=== PATIENT | female | born 1935 | race Caucasian/White ===

== ENCOUNTER 2023-11-14 11:48 | Inpatient (IN) | payer MEDICARE, OTHER ==
--- NOTE | 2023-11-14 12:44 | ED ---
General Adult HPI - General Chief complaint: Altered Mental Status Stated complaint: AMS Time Seen by Provider: 11/14/23 11:59 Source: patient, EMS, RN notes reviewed Mode of arrival: EMS Limitations: altered mental status - History of Present Illness Initial comments: Patient is a pleasant 88-year-old female present to the emergency department after being found on the floor. Last known well was 4 days ago. Patient states she was trying to change a light and fell. Patient does complain of left hip pain. Unclear when this happened. Patient was lying on the floor. Patient found covered with feces. - Related Data Home Medications Medication Instructions Recorded Confirmed ALPRAZolam [Xanax] 0.5 mg PO BID PRN 11/14/23 11/14/23 Levothyroxine Sodium [Synthroid] 50 mcg PO DIRECTED 11/14/23 11/14/23 Levothyroxine Sodium [Synthroid] 100 mcg PO DIRECTED 11/14/23 11/14/23 Allergies Allergy/AdvReac Type Severity Reaction Status Date / Time No Known Allergies Allergy Verified 11/14/23 12:36 Review of Systems ROS Statement: Those systems with pertinent positive or pertinent negative responses have been documented in the HPI. ROS Other: All systems not noted in ROS Statement are negative. Constitutional: Denies: fever Eyes: Denies: eye pain ENT: Denies: ear pain Respiratory: Denies: cough, dyspnea Cardiovascular: Denies: chest pain Endocrine: Denies: fatigue Gastrointestinal: Denies: abdominal pain Musculoskeletal: Reports: as per HPI Past Medical History Past Medical History: Unable to Obtain History of Any Multi-Drug Resistant Organisms: Unobtainable Past Surgical History: Unable to Obtain Smoking Status: Unknown if ever smoked Past Alcohol Use History: Unable to Obtain Past Drug Use History: Unable to Obtain General Exam Limitations: altered mental status General appearance: alert, in no apparent distress Head exam: Present: other (Abrasion) Eye exam: Present: normal appearance, PERRL, EOMI ENT exam: Present: mucous membranes dry Neck exam: Present: normal inspection. Absent: tenderness Respiratory exam: Present: normal lung sounds bilaterally Cardiovascular Exam: Present: irregular rhythm GI/Abdominal exam: Present: soft. Absent: tenderness Extremities exam: Present: tenderness (Left lateral hip. Left leg is shortened and externally rotated) Neurological exam: Present: alert, CN II-XII intact. Absent: motor sensory deficit Expanded Neurological exam: Present: protecting the airway Patient oriented to: Present: person, time. Absent: place Cranial nerves: EOM's Intact: Normal Motor strength exam: RUE: 5, LUE: 5, RLE: 5, LLE: 5 (Limited by hip pain) Eye Response: (4) open spontaneously Motor Response: (6) obeys commands Verbal Response: (4) confused conversation Psychiatric exam: Present: normal affect, normal mood Skin exam: Present: abrasion (Multiple diffuse abrasion) Course Vital Signs 11/14/23 11/14/23 12:16 13:48 Temperature 97 F L Pulse Rate 95 78 Respiratory 20 18 Rate Blood Pressure 134/81 114/57 O2 Sat by Pulse 100 96 Oximetry EKG Findings - EKG Results: EKG: interpreted by JOVANY (Inferior T wave inversion), normal axis, normal QRS EKG shows: atrial fibrillation Medical Decision Making - Medical Decision Making Was pt. sent in by a medical professional or institution (, PA, RIGGING LOFT REPAIRER, urgent care, hospital, or jail...) When possible be specific @ -No Did you speak to anyone other than the patient for history (EMS, parent, family, police, friend...)? What history was obtained from this source @ -EMS helps provide history as patient is a poor historian Did you review nursing and triage notes (agree or disagree)? Why? @ -I reviewed and agree with nursing and triage notes Were old charts reviewed (outside hosp., previous admission, EMS record, old EKG, old radiological studies, urgent care reports/EKG's, jail records)? Report findings @ -No old charts were reviewed Differential Diagnosis (chest pain, altered mental status, abdominal pain women, abdominal pain men, vaginal bleeding, weakness, fever, dyspnea, syncope, headache, dizziness, GI bleed, back pain, seizure, CVA, palpatations, mental health, musculoskeletal)? @ -Differential Weakness: Hypoglycemia, shock, sepsis, hyponatremia, anemia, infection, OH, ETOH, adverse medicine reaction, overdose, stroke, this is not meant to be an all-inclusive list. EKG interpreted by me (3pts min.). @ -As above X-rays interpreted by me (1pt min.). @ -Chest x-ray shows no acute process. Left hip and pelvis x-ray shows left femoral neck fracture CT interpreted by me (1pt min.). @ -CT brain without acute process and C-spine U/S interpreted by me (1pt. min.). @ -None done What testing was considered but not performed or refused? (CT, X-rays, U/S, labs)? Why? @ -None What meds were considered but not given or refused? Why? @ -None Did you discuss the management of the patient with other professionals (professionals i.e. DrTaawnda, PA, RIGGING LOFT REPAIRER, lab, RT, psych nurse, social science instructor, wood room hand, teacher, zoology technical officer, medical case manager)? Give summary @ -Case was discussed with Dr. Nino, who will admit covering hospital call. Case also discussed with Dr. Rodriguez who will consult for orthopedic surgery. He is okay with medical admission secondary to fall occurring a couple of days ago. Was smoking cessation discussed for >3mins.? @ -No Was critical care preformed (if so, how long)? @ -No Were there social determinants of health that impacted care today? How? (Homelessness, low income, unemployed, alcoholism, drug addiction, transportation, low edu. Level, literacy, decrease access to med. care, intermediate, rehab)? @ -No Was there de-escalation of care discussed even if they declined (Discuss DNR or withdrawal of care, Hospice)? DNR status @ -No What co-morbidities impacted this encounter? (DM, HTN, Smoking, COPD, CAD, Cancer, CVA, ARF, Chemo, Hep., AIDS, mental health diagnosis, sleep apnea, morbid obesity)? @ -None Was patient admitted / discharged? Hospital course, mention meds given and route, prescriptions, significant lab abnormalities, going to OR and other pertinent info. @ -Patient reevaluated. Patient and family updated on results and plan. Patient has severe dehydration and hip fracture. Admission orders written. Undiagnosed new problem with uncertain prognosis? @ -No Drug Therapy requiring intensive monitoring for toxicity (Heparin, Nitro, Insulin, Cardizem)? @ -No Were any procedures done? @ -No Diagnosis/symptom? @ -Dehydration, left hip fracture Acute, or Chronic, or Acute on Chronic? @ -Acute, acute, acute Uncomplicated (without systemic symptoms) or Complicated (systemic symptoms)? @ -Default Side effects of treatment? @ -No Exacerbation, Progression, or Severe Exacerbation? @ -No Poses a threat to life or bodily function? How? (Chest pain, [place], OH, pneumonia, PE, COPD, DKA, ARF, appy, cholecystitis, CVA, Diverticulitis, Homicidal, Suicidal, threat to staff... and all critical care pts) @ -No - Lab Data Result diagrams: 11/14/23 12:44 11/14/23 12:44 Lab Results 11/14/23 11/14/23 11/14/23 Range/Units 12:44 12:44 12:44 WBC 9.7 (3.8-10.6) k/uL RBC 4.29 (3.80-5.40) m/uL Hgb 13.7 (11.4-16.0) gm/dL Hct 43.8 (34.0-46.0) % MCV 102.1 H (80.0-100.0) fL MCH 31.8 (25.0-35.0) pg MCHC 31.2 (31.0-37.0) g/dL RDW 13.3 (11.5-15.5) % Plt Count 286 (150-450) k/uL MPV 8.8 Neutrophils % 88 % Lymphocytes % 6 % Monocytes % 4 % Eosinophils % 0 % Basophils % 0 % Neutrophils # 8.5 H (1.3-7.7) k/uL Lymphocytes # 0.6 L (1.0-4.8) k/uL Monocytes # 0.4 (0-1.0) k/uL Eosinophils # 0.0 (0-0.7) k/uL Basophils # 0.0 (0-0.2) k/uL Hypochromasia Moderate Macrocytosis Slight PT 10.8 (10.0-12.5) sec INR 1.0 (<1.2) APTT 24.9 (22.0-30.0) sec Sodium (137-145) mmol/L Potassium (3.5-5.1) mmol/L Chloride (98-107) mmol/L Carbon Dioxide (22-30) mmol/L Anion Gap mmol/L BUN (7-17) mg/dL Creatinine (0.52-1.04) mg/dL Est GFR (CKD-EPI)AfAm (>60 ml/min/1.73 sqM) Est GFR (CKD-EPI)NonAf (>60 ml/min/1.73 sqM) Glucose (74-99) mg/dL Plasma Lactic Acid Gopal (0.7-2.0) mmol/L Calcium (8.4-10.2) mg/dL Magnesium (1.6-2.3) mg/dL Total Bilirubin (0.2-1.3) mg/dL AST (14-36) U/L ALT (4-34) U/L Alkaline Phosphatase (38-126) U/L Creatine Kinase (30-135) U/L Troponin I (0.000-0.034) ng/mL Total Protein (6.3-8.2) g/dL Albumin (3.5-5.0) g/dL Urine Color Yellow Urine Appearance Clear (Clear) Urine pH 5.0 (5.0-8.0) Ur Specific [place] 1.021 (1.001-1.035) Urine Protein Trace H (Negative) Urine Glucose (UA) Negative (Negative) Urine Ketones Trace H (Negative) Urine Blood Negative (Negative) Urine Nitrite Negative (Negative) Urine Bilirubin Negative (Negative) Urine Urobilinogen <2.0 (<2.0) mg/dL Ur Leukocyte Esterase Negative (Negative) 11/14/23 11/14/23 11/14/23 Range/Units 12:44 12:44 12:44 WBC (3.8-10.6) k/uL RBC (3.80-5.40) m/uL Hgb (11.4-16.0) gm/dL Hct (34.0-46.0) % MCV (80.0-100.0) fL MCH (25.0-35.0) pg MCHC (31.0-37.0) g/dL RDW (11.5-15.5) % Plt Count (150-450) k/uL MPV Neutrophils % % Lymphocytes % % Monocytes % % Eosinophils % % Basophils % % Neutrophils # (1.3-7.7) k/uL Lymphocytes # (1.0-4.8) k/uL Monocytes # (0-1.0) k/uL Eosinophils # (0-0.7) k/uL Basophils # (0-0.2) k/uL Hypochromasia Macrocytosis PT (10.0-12.5) sec INR (<1.2) APTT (22.0-30.0) sec Sodium 149 H (137-145) mmol/L Potassium 4.4 (3.5-5.1) mmol/L Chloride 115 H (98-107) mmol/L Carbon Dioxide 16 L (22-30) mmol/L Anion Gap 18 mmol/L BUN 104 H* (7-17) mg/dL Creatinine 2.00 H (0.52-1.04) mg/dL Est GFR (CKD-EPI)AfAm 26 (>60 ml/min/1.73 sqM) Est GFR (CKD-EPI)NonAf 22 (>60 ml/min/1.73 sqM) Glucose 92 (74-99) mg/dL Plasma Lactic Acid Gopal 1.9 (0.7-2.0) mmol/L Calcium 9.6 (8.4-10.2) mg/dL Magnesium 3.0 H (1.6-2.3) mg/dL Total Bilirubin 2.5 H (0.2-1.3) mg/dL AST 61 H (14-36) U/L ALT 50 H (4-34) U/L Alkaline Phosphatase 83 (38-126) U/L Creatine Kinase 395 H (30-135) U/L Troponin I 0.023 (0.000-0.034) ng/mL Total Protein 6.5 (6.3-8.2) g/dL Albumin 3.6 (3.5-5.0) g/dL Urine Color Urine Appearance (Clear) Urine pH (5.0-8.0) Ur Specific [place] (1.001-1.035) Urine Protein (Negative) Urine Glucose (UA) (Negative) Urine Ketones (Negative) Urine Blood (Negative) Urine Nitrite (Negative) Urine Bilirubin (Negative) Urine Urobilinogen (<2.0) mg/dL Ur Leukocyte Esterase (Negative) Disposition Clinical Impression: Dehydration, Fracture of left hip Disposition: ADMITTED IP TO THIS [facility] Condition: Serious Is patient prescribed a controlled substance at d/c from ED?: No Referrals: None,Stated [Primary Care Provider] - 1-2 days Time of Disposition: 14:57
[2023-11-14 13:21] LABS: Basophils % (A) 0 %; Eosinophils % (A) 0 %; HCT 43.8 % (34.0-46.0); HGB 13.7 gm/dL (11.4-16.0); Hypochromasia Moderate; Lymphocytes # (A) 0.6 k/uL (1.0-4.8); Lymphocytes % (A) 6 %; MCH 31.8 pg (25.0-35.0); MCHC 31.2 g/dL (31.0-37.0); MCV 102.1 fL (80.0-100.0); Macrocytosis Slight; Mean Platelet Volume 8.8; Monocytes # (A) 0.4 k/uL (0-1.0); Monocytes % (A) 4 %; Neutrophils # (A) 8.5 k/uL (1.3-7.7); Neutrophils % (A) 88 %; Platelet Count 286 k/uL (150-450); RBC 4.29 m/uL (3.80-5.40); RDW 13.3 % (11.5-15.5); WBC 9.7 k/uL (3.8-10.6)
[2023-11-14 13:27] LABS: Appearance,Urine Clear (Clear); Bilirubin,Urine Negative (Negative); Blood,Urine Negative (Negative); Color,Urine Yellow; Glucose,Urine (UA) Negative (Negative); Ketones,Urine Trace (Negative); Leukocyte Esterase,Urine Negative (Negative); Nitrite,Urine Negative (Negative); Protein,Urine Trace (Negative); Specific Gravity,Urine 1.021 (1.001-1.035); Urobilinogen,Urine <2.0 mg/dL (<2.0)
--- NOTE | 2023-11-14 13:30 | CT ---
EXAMINATION TYPE: CT brain cspine wo con CT DLP: 1209.2 mGycm, Automated exposure control for dose reduction was used. DATE OF EXAM: 11/14/2023 1:02 PM COMPARISON: None CLINICAL INDICATION:Female, 88 years old with history of weak; ams TECHNIQUE: Brain: Multiple axial CT images of the brain were obtained without IV contrast. Cspine: Axial CT images from the skull base to the inferior aspect of T2 we obtained without intraven ous contrast. Coronal and sagittal reformatted images were also reviewed. FINDINGS: Brain: Extra-axial spaces: No abnormal extra-axial fluid collections. Ventricular system: Dilatation in proportion to cerebral atrophy. Cerebral parenchyma: Mineralization to the basal ganglia bilaterally. Cerebral atrophy. No acute intr aparenchymal hemorrhage or mass effect. The galvez-white junction is well differentiated. Scattered hy poattenuating areas are seen within the white matter. Cerebellum: Unremarkable. Mass effect: No evidence of midline shift. Intracranial vasculature: unremarkable Soft tissues: Normal. Calvarium/osseous structures: No depressed skull fracture. Paranasal sinuses and mastoid air cells: Clear. Visualized orbits: Orbital contents are intact. Cervical spine: Fracture: None. Osseous structures: Multilevel degenerative disc disease changes with endplate spurring and disc oste ophyte complex's. Vertebral alignment: Within normal limits. Spinal canal/Neural Foramina: No evidence of significant spinal canal narrowing. No evidence for sign ificant neural foraminal stenosis. Neck soft tissues: Prevertebral soft tissues are within normal limits. Other: The airway is patent. The lung apices are clear. Atherosclerosis of the arterial vasculature. IMPRESSION: 1. No acute intracranial process. 2. Nonspecific white matter changes, likely secondary to chronic small vessel ischemic disease. 3. No evidence of cervical spine fracture. 4. Mild multilevel degenerative disc disease.
[2023-11-14 13:33] LABS: Partial Thromboplastin Time 24.9 sec (22.0-30.0); Prothrombin Time 10.8 sec (10.0-12.5)
--- NOTE | 2023-11-14 13:33 | XR ---
EXAMINATION TYPE: XR Hip LT and AP Pelvis DATE OF EXAM: 11/14/2023 1:26 PM CLINICAL INDICATION:Female, 88 years old with history of fall; PHH COMPARISON: None. TECHNIQUE: XR Hip LT and AP Pelvis; hip was examined in the frontal and lateral projections and a AP pelvis. FINDINGS/IMPRESSION: There is acute fracture of the left hip with shortening and varus deformity. The remainder of the spine and other osseous structures appear intact.
--- NOTE | 2023-11-14 13:34 | XR ---
EXAMINATION TYPE: XR chest 1V portable DATE OF EXAM: 11/14/2023 1:26 PM CLINICAL INDICATION:Female, 88 years old with history of weak; COMPARISON: None TECHNIQUE: XR chest 1V portable Frontal view of the chest. FINDINGS: Lungs/Pleura: There is no evidence of pleural effusion, focal consolidation, or pneumothorax. Pulmonary vascularity: Unremarkable. Heart/mediastinum: Cardiomediastinal silhouette is unremarkable. Musculoskeletal: No acute osseous pathology. IMPRESSION: No acute cardiopulmonary disease/process.
[2023-11-14] MEDS: SODIUM CHLORIDE 0.9% 1,000 ML IV STA (13:40)
[2023-11-14 13:58] LABS: Potassium 4.4 mmol/L (3.5-5.1)
[2023-11-14 13:59] LABS: ALT 50 U/L (4-34); AST 61 U/L (14-36); African American GFR (CKD) 26 (>60 ml/min/1.73 sqM); Albumin 3.6 g/dL (3.5-5.0); Alkaline Phosphatase 83 U/L (38-126); Anion Gap 18 mmol/L; Calcium 9.6 mg/dL (8.4-10.2); Carbon Dioxide 16 mmol/L (22-30); Chloride 115 mmol/L (98-107); Creatine Kinase 395 U/L (30-135); Glucose 92 mg/dL (74-99); Non-African American GFR(CKD) 22 (>60 ml/min/1.73 sqM); Sodium 149 mmol/L (137-145); Total Bilirubin 2.5 mg/dL (0.2-1.3); Total Protein 6.5 g/dL (6.3-8.2)
[2023-11-14 14:04] LABS: Blood Urea Nitrogen 104 mg/dL (7-17)
[2023-11-14] MEDS ORDERED: NALOXONE 0.4 MG/ML 1 ML VIAL IV PRN (14:58)
[2023-11-14] MEDS: SODIUM CHLORIDE 0.9% 1,000 ML IV SCH (15:09)
[2023-11-14] MEDS ORDERED: LEVOTHYROXINE 100 MCG TAB PO SCH (15:15)
[2023-11-14] MEDS: LEVOTHYROXINE 50 MCG TAB PO SCH (17:40)
[2023-11-14 17:43] LABS: Basophils % (A) 0 %; Eosinophils % (A) 0 %; HCT 43.6 % (34.0-46.0); HGB 13.3 gm/dL (11.4-16.0); Hypochromasia Marked; Lymphocytes # (A) 0.7 k/uL (1.0-4.8); Lymphocytes % (A) 6 %; MCH 31.6 pg (25.0-35.0); MCHC 30.5 g/dL (31.0-37.0); MCV 103.6 fL (80.0-100.0); Macrocytosis Slight; Mean Platelet Volume 8.5; Monocytes # (A) 0.5 k/uL (0-1.0); Monocytes % (A) 5 %; Neutrophils % (A) 86 %; Platelet Count 256 k/uL (150-450); RBC 4.21 m/uL (3.80-5.40); RDW 13.2 % (11.5-15.5); WBC 10.4 k/uL (3.8-10.6)
[2023-11-14] MEDS: MORPHINE SULFATE 4 MG/ML SYRINGE IV PRN (22:16)
--- NOTE | 2023-11-14 23:49 | P.HPIM ---
History of Present Illness H&P Date: 11/14/23 Chief Complaint: Altered mental status 88-year-old female present to the emergency department after being found on the floor. Last known well was 4 days ago. Patient states she was trying to change a light and fell. Patient does complain of left hip pain. Unclear when this happened. Patient was lying on the floor. Patient found covered with feces. Blood work completed in ED reveals a WBC of 9.7, hemoglobin of 13.7 and platelet count of 286, sodium 149, potassium 4.4, BUN/creatinine 104/2.0, UA is unremarkable, lactic acid level of 1.9, troponin of 0.023 EKG reveals no acute ST or T wave changes Chest x-ray is negative for any acute intrapulmonary process X-ray of left hip and pelvis reveals left femoral neck fracture CT of the brain is negative for any acute process CT of the spine does not reveal any fractures Review of Systems REVIEW OF SYSTEMS: CONSTITUTIONAL: No fever, no malaise, no fatigue. HEENT: No recent visual problems or hearing problems. Denied any sore throat. CARDIOVASCULAR: No chest pain, orthopnea, PND, no palpitations, no syncope. PULMONARY: No shortness of breath, no cough, no hemoptysis. GASTROINTESTINAL: No diarrhea, no nausea, no vomiting, no abdominal pain. NEUROLOGICAL: No headaches, no weakness, no numbness. HEMATOLOGICAL: Denies any bleeding or petechiae. GENITOURINARY: Denies any burning micturition, frequency, or urgency. MUSCULOSKELETAL/RHEUMATOLOGICAL: Denies any joint pain, swelling, or any muscle pain. ENDOCRINE: Denies any polyuria or polydipsia. The rest of the 14-point review of systems is negative. Past Medical History Past Medical History: Unable to Obtain History of Any Multi-Drug Resistant Organisms: Unobtainable Past Surgical History: Unable to Obtain Smoking Status: Unknown if ever smoked Past Alcohol Use History: Unable to Obtain Past Drug Use History: Unable to Obtain Medications and Allergies Home Medications Medication Instructions Recorded Confirmed Type ALPRAZolam [Xanax] 0.5 mg PO BID PRN 11/14/23 11/14/23 History Levothyroxine Sodium [Synthroid] 50 mcg PO SUFRSA 11/14/23 11/14/23 History Levothyroxine Sodium [Synthroid] 100 mcg PO MOTUWETH 11/14/23 11/14/23 History Allergies Allergy/AdvReac Type Severity Reaction Status Date / Time No Known Allergies Allergy Verified 11/14/23 12:36 Physical Exam Vitals: Vital Signs Temp Pulse Resp BP Pulse Ox 11/14/23 13:48 78 18 114/57 96 11/14/23 12:16 97 F L 95 20 134/81 100 Intake and Output 11/14/23 11/14/23 11/14/23 06:59 14:59 22:59 Other: Weight 47.627 kg General appearance: alert, in no apparent distress Head exam: Present: other (Abrasion) Eye exam: Present: normal appearance, PERRL, EOMI ENT exam: Present: mucous membranes dry Neck exam: Present: normal inspection. Absent: tenderness Respiratory exam: Present: normal lung sounds bilaterally Cardiovascular Exam: Present: irregular rhythm GI/Abdominal exam: Present: soft. Absent: tenderness Extremities exam: Present: tenderness (Left lateral hip. Left leg is shortened and externally rotated) Neurological exam: Present: alert, CN II-XII intact. Absent: motor sensory deficit Psychiatric exam: Present: normal affect, normal mood Skin exam: Present: abrasion (Multiple diffuse abrasio Results CBC & Chem 7: 11/14/23 17:24 11/14/23 12:44 Labs: Abnormal Lab Results - Last 24 Hours (Table) 11/14/23 11/14/23 11/14/23 Range/Units 12:44 12:44 12:44 MCV 102.1 H (80.0-100.0) fL Neutrophils # 8.5 H (1.3-7.7) k/uL Lymphocytes # 0.6 L (1.0-4.8) k/uL Sodium 149 H (137-145) mmol/L Chloride 115 H (98-107) mmol/L Carbon Dioxide 16 L (22-30) mmol/L BUN 104 H* (7-17) mg/dL Creatinine 2.00 H (0.52-1.04) mg/dL Magnesium 3.0 H (1.6-2.3) mg/dL Total Bilirubin 2.5 H (0.2-1.3) mg/dL AST 61 H (14-36) U/L ALT 50 H (4-34) U/L Creatine Kinase 395 H (30-135) U/L Urine Protein Trace H (Negative) Urine Ketones Trace H (Negative) Assessment and Plan Assessment: 1. Left hip fracture -Patient has been admitted and placed on bedrest; IV pain medication -Patient will be made n.p.o. at midnight -- Orthopedic surgery is consulted 2. Acute renal injury/dehydration; patient is placed on IV fluids in form of half-normal saline; monitor strict VALENTIN's, daily weights, renal function electrolytes; avoid nephrotoxins and hypotension 3. Transaminitis; AST and ALT are elevated at 61/50 4. Hypothyroidism; continue home dose of levothyroxine 5. New onset atrial fibrillation; patient remains rate controlled -Cardiology is consulted for further recommendations on new onset atrial fibrillation and cardiac clearance DVT prophylaxis; SCDs CODE STATUS; full code
[2023-11-15 08:44] LABS: Basophils % (A) 0 %; Eosinophils % (A) 0 %; HCT 40.1 % (34.0-46.0); HGB 12.1 gm/dL (11.4-16.0); Hypochromasia Marked; Lymphocytes # (A) 0.7 k/uL (1.0-4.8); Lymphocytes % (A) 7 %; MCH 31.4 pg (25.0-35.0); MCHC 30.2 g/dL (31.0-37.0); Macrocytosis Slight; Mean Platelet Volume 8.8; Monocytes # (A) 0.5 k/uL (0-1.0); Monocytes % (A) 5 %; Neutrophils # (A) 8.2 k/uL (1.3-7.7); Neutrophils % (A) 86 %; Platelet Count 231 k/uL (150-450); RBC 3.85 m/uL (3.80-5.40); RDW 13.2 % (11.5-15.5); WBC 9.5 k/uL (3.8-10.6)
--- NOTE | 2023-11-15 08:46 | P.CNOR ---
History of Present Illness - HPI History of present illness: The patient is a 8-year-old female who is admitted to internal medicine with severe dehydration following a ground-level fall and a displaced left femoral neck fracture. Orthopedics was consulted for the femoral neck fracture. I evaluated the patient is morning at bedside. Most of the history is obtained from the chart as the patient provides minimal history. I probably the patient fell 4 days ago and was found yesterday covered in feces. She was brought to the ER and found to be severely dehydrated. X-rays of the hip showed a displaced femoral neck fracture. She was admitted to internal medicine. Past Medical History Past Medical History: Unable to Obtain Additional Past Medical History / Comment(s): Diverticulitis History of Any Multi-Drug Resistant Organisms: Unobtainable Past Surgical History: Unable to Obtain Past Anesthesia/Blood Transfusion Reactions: No Reported Reaction Smoking Status: Unknown if ever smoked Past Alcohol Use History: Unable to Obtain Past Drug Use History: Unable to Obtain Medications and Allergies Home Medications Medication Instructions Recorded Confirmed Type ALPRAZolam [Xanax] 0.5 mg PO BID PRN 11/14/23 11/14/23 History Levothyroxine Sodium [Synthroid] 50 mcg PO SUFRSA 11/14/23 11/14/23 History Levothyroxine Sodium [Synthroid] 100 mcg PO MOTUWETH 11/14/23 11/14/23 History Allergies Allergy/AdvReac Type Severity Reaction Status Date / Time No Known Allergies Allergy Verified 11/14/23 12:36 Physical Examination The patient is sleeping in her bed. She will open her eyes and respond to some commands but is delirious. Her head is normocephalic/atraumatic. Her cervical spine is nontender. She can shake nonlabored breathing with symmetric chest expansion. Her bilateral upper extremities without deformity. Her right lower extremity is without deformity and is nontender. A focused exam of the left lower extremity was conducted. On inspection the leg is shortened and externally rotated. There are no skin lesions, scars, or open wounds over the anterior aspect of the hip. Her thigh and calf are soft. She appears to be spontaneously moving her toes. The foot is warm and well perfused with brisk capillary refill Results X-rays of the pelvis and left hip show a displaced subcapital femoral neck fracture and diffuse osteopenia - Labs Labs: Abnormal Lab Results - Last 24 Hours (Table) 11/14/23 11/14/23 11/14/23 Range/Units 12:44 12:44 12:44 MCV 102.1 H (80.0-100.0) fL MCHC (31.0-37.0) g/dL Neutrophils # 8.5 H (1.3-7.7) k/uL Lymphocytes # 0.6 L (1.0-4.8) k/uL Sodium 149 H (137-145) mmol/L Chloride 115 H (98-107) mmol/L Carbon Dioxide 16 L (22-30) mmol/L BUN 104 H* (7-17) mg/dL Creatinine 2.00 H (0.52-1.04) mg/dL Magnesium 3.0 H (1.6-2.3) mg/dL Total Bilirubin 2.5 H (0.2-1.3) mg/dL AST 61 H (14-36) U/L ALT 50 H (4-34) U/L Creatine Kinase 395 H (30-135) U/L Urine Protein Trace H (Negative) Urine Ketones Trace H (Negative) 11/14/23 Range/Units 17:24 MCV 103.6 H (80.0-100.0) fL MCHC 30.5 L (31.0-37.0) g/dL Neutrophils # 9.0 H (1.3-7.7) k/uL Lymphocytes # 0.7 L (1.0-4.8) k/uL Sodium (137-145) mmol/L Chloride (98-107) mmol/L Carbon Dioxide (22-30) mmol/L BUN (7-17) mg/dL Creatinine (0.52-1.04) mg/dL Magnesium (1.6-2.3) mg/dL Total Bilirubin (0.2-1.3) mg/dL AST (14-36) U/L ALT (4-34) U/L Creatine Kinase (30-135) U/L Urine Protein (Negative) Urine Ketones (Negative) H & H 11/14/23 11/14/23 Range/Units 12:44 17:24 Hgb 13.7 13.3 (11.4-16.0) gm/dL Hct 43.8 43.6 (34.0-46.0) % Coagulation 11/14/23 Range/Units 12:44 INR 1.0 (<1.2) Result Diagrams: 11/14/23 17:24 11/14/23 12:44 Assessment and Plan Assessment: Displaced left subcapital femoral neck fracture Multiple medical problems Plan: The patient has a displaced subcapital femoral neck fracture and my recom mendation is to proceed with a cemented hip hemiarthroplasty when she is medically stable and cleared by internal medicine and cardiology. She is to remain strictly nonweightbearing on bedrest until surgery. If she is cleared we will plan on surgery later this afternoon. Time with Patient: Greater than 30
[2023-11-15 08:54] LABS: ALT 39 U/L (4-34); AST 46 U/L (14-36); African American GFR (CKD) 21 (>60 ml/min/1.73 sqM); Albumin 2.7 g/dL (3.5-5.0); Alkaline Phosphatase 70 U/L (38-126); Anion Gap 17 mmol/L; Calcium 8.4 mg/dL (8.4-10.2); Carbon Dioxide 13 mmol/L (22-30); Chloride 122 mmol/L (98-107); Glucose 68 mg/dL (74-99); Non-African American GFR(CKD) 18 (>60 ml/min/1.73 sqM); Potassium 4.1 mmol/L (3.5-5.1); Sodium 152 mmol/L (137-145); Total Bilirubin 1.6 mg/dL (0.2-1.3); Total Protein 5.4 g/dL (6.3-8.2)
[2023-11-15 09:18] LABS: Blood Urea Nitrogen 117 mg/dL (7-17)
[2023-11-15] MEDS: DEXTROSE 50% SYRINGE 50 ML IVP ONE (10:17)
[2023-11-15 10:24] LABS: Glucose,Whole Blood 51 mg/dL (70-110)
[2023-11-15 10:34] LABS: Glucose,Whole Blood 157 mg/dL (70-110)
[2023-11-15 10:34] LABS: Glucose,Whole Blood 50 mg/dL (70-110)
[2023-11-15] MEDS: DEXTROSE 5% IN WATER 1,000 ML IV SCH (10:38)
[2023-11-15 11:54] LABS: Glucose,Whole Blood 133 mg/dL (70-110)
--- NOTE | 2023-11-15 12:18 | P.NPCON ---
History of Present Illness - Reason for Consult Consult date: 11/15/23 - History of Present Illness Patient is an 88-year-old female who presents to the hospital after being found down at home. Patient is unable to provide history at baseline as she is lethargic and minimal interactive during interview. Per reports she was found down at home after following unwitnessed and unclear for how long she was down the last well-known was 4 days to hospitalization. She's brought to the hospital and found to have a left femur fracture as well as TOMI and appeared to be dehydrated. She was admitted to the hospital for evaluation by orthopedics. Nephrology has been consulted for evaluation of TOMI and hypernatremia. Vital signs are stable. General: No acute distress, lethargic HEENT: Head exam is unremarkable. LUNGS: No audible rhonchi or wheezes. HEART: Irregular rhythm with regular rate. Extremities: No edema. Past Medical History Past Medical History: Unable to Obtain Additional Past Medical History / Comment(s): Diverticulitis History of Any Multi-Drug Resistant Organisms: Unobtainable Past Surgical History: Unable to Obtain Past Anesthesia/Blood Transfusion Reactions: No Reported Reaction Smoking Status: Unknown if ever smoked Past Alcohol Use History: Unable to Obtain Past Drug Use History: Unable to Obtain Medications and Allergies Home Medications Medication Instructions Recorded Confirmed Type ALPRAZolam [Xanax] 0.5 mg PO BID PRN 11/14/23 11/14/23 History Levothyroxine Sodium [Synthroid] 50 mcg PO SUFRSA 11/14/23 11/14/23 History Levothyroxine Sodium [Synthroid] 100 mcg PO MOTUWETH 11/14/23 11/14/23 History Allergies Allergy/AdvReac Type Severity Reaction Status Date / Time No Known Allergies Allergy Verified 11/14/23 12:36 Physical Exam Vitals: Vital Signs Temp Pulse Pulse Resp BP BP Pulse Ox 11/15/23 11:51 97.8 F 83 16 119/56 94 L 11/15/23 07:49 97.4 F L 83 16 127/49 96 11/15/23 05:00 85 16 115/50 98 11/14/23 23:21 67 16 119/50 96 11/14/23 19:31 97.6 F 65 18 109/53 97 11/14/23 18:42 97.6 F 86 16 130/91 96 11/14/23 17:44 80 18 101/47 93 L 11/14/23 13:48 78 18 114/57 96 11/14/23 12:16 97 F L 95 20 134/81 100 Intake and Output 11/14/23 11/15/23 11/15/23 22:59 06:59 14:59 Intake Total 130 Output Total 175 Balance 130 -175 Intake: Intake, IV Titration 130 Amount Sodium Chloride 0.9% 1, 130 000 ml @ 130 mls/hr IV . Q7H42M [facility] Rx#:[id number] Output: Urine 175 Other: Voiding Method Indwelling Catheter Indwelling Catheter Weight 47.627 kg Results - Lab Results Most recent lab results Calcium 8.4 mg/dL (8.4-10.2) 11/15/23 07:40 Magnesium 3.0 mg/dL (1.6-2.3) H 11/14/23 12:44 11/15/23 07:40 11/15/23 07:40 Assessment and Plan Plan: Assessment: 1. TOMI likely secondary to ATN from dehydration. A slight creatinine is unknown presented with a creatinine of 2.0, worsening 2.4 today. UA showed no active sediment. 2. Hypernatremia due to dehydration and poor oral intake 3. Medical acidosis due to tomi and hyperchloremia. 4. Fall with left femur fracture Plan: Change IV fluids to D5W at 100cc/hr Continue strict I/O's, daily BMP CK not significantly elevated to cause tomi Check PVR, migraine does not improve will consider renal ultrasound Orthopedics planning for surgery later this afternoon No bicarbonate therapy today we'll consider tomorrow if no improvement with D5W
[2023-11-15 16:38] LABS: Glucose,Whole Blood 135 mg/dL (70-110)
[2023-11-15 20:08] LABS: Glucose,Whole Blood 130 mg/dL (70-110)
[2023-11-16 06:20] LABS: Glucose,Whole Blood 105 mg/dL (70-110)
[2023-11-16] MEDS: LEVOTHYROXINE 100 MCG TAB PO SCH (06:36)
[2023-11-16 08:13] LABS: African American GFR (CKD) 35 (>60 ml/min/1.73 sqM); Anion Gap 9 mmol/L; Blood Urea Nitrogen 90 mg/dL (7-17); Carbon Dioxide 20 mmol/L (22-30); Chloride 115 mmol/L (98-107); Glucose 117 mg/dL (74-99); Non-African American GFR(CKD) 31 (>60 ml/min/1.73 sqM); Potassium 3.6 mmol/L (3.5-5.1); Sodium 144 mmol/L (137-145)
--- NOTE | 2023-11-16 10:59 | P.CRDCN ---
History of Present Illness History of present illness: HISTORY OF PRESENT ILLNESS: This is a 88-year-old female with a past medical history significant for anxiety and hypothyroidism. Patient does not follow with a ham clerk. We have been asked to see the patient in consultation for atrial fibrillation. Patient examined at the bedside. Patient presented to the hospital after being found laying on the floor. The patient's last known well time was approximately 4 days prior to this. The patient was found to have a left hip fracture and is scheduled to undergo surgical intervention. Patient is somewhat confused at the time of examination. The patient denies any chest pain or pressure. She denies shortness of breath. Denies palpitations. Vital signs are stable. Initial EKG interpreted by computer as atrial fibrillation. There is significant baseline artifact. However this EKG appears to be sinus mechanism. Repeat EKGs and telemetry monitoring reveal sinus mechanism with PACs with no evidence of atrial fibrillation. DIAGNOSTICS: - EKG reveals sinus mechanism with PACs - Chest xray negative for acute process. - Laboratory data: WBC 9.5. Hemoglobin 12.1. Platelet count 231. Sodium 144. Potassium 3.6. BUN 90. Creatinine 1.53. Troponin 0.023. 0.037. - Current home cardiac medications include none. REVIEW OF SYSTEMS: At the time of my exam: CONSTITUTIONAL: Denies fever or chills. HEENT: Denies blurred vision, vision changes, or eye pain. Denies hemoptysis CARDIOVASCULAR: Denies chest pain. Denies orthopnea. Denies PND. Denies palpitations RESPIRATORY: Denies shortness of breath. GASTROINTESTINAL: Denies abdominal pain. Denies nausea or vomiting. HEMATOLOGIC: Denies bleeding disorders. GENITOURINARY: Denies any blood in urine. SKIN: Denies pruitis. Denies rash. PHYSICAL EXAM: VITAL SIGNS: Reviewed. GENERAL: Well-developed in no acute distress. HEENT: Head is normocephalic. Pupils are equal, round. Sclerae anicteric. Mucous membranes of the mouth are moist. Neck supple. No JVD or thyromegaly LUNGS: Respirations even and unlabored. Lungs essentially clear to auscultation bilaterally. HEART: Regular rate and rhythm. S1 and S2 heard. ABDOMEN: Soft. Nondistended. Nontender. EXTREMITIES: Normal range of motion. No clubbing or cyanosis. Peripheral pulses intact. No lower extremity edema NEUROLOGIC: Awake and alert. Oriented x 1-2. ASSESSMENT: Left hip fracture, status post fall Atrial fibrillation, ruled out EKG reveals sinus mechanism with PACs Acute kidney injury Hypothyroidism Anxiety Systolic murmur, suggestive of at least moderate aortic stenosis by auscultation PLAN: Initial EKG interpreted by computer as atrial fibrillation. There is significant baseline artifact. However this EKG appears to be sinus mechanism. Repeat EKGs and telemetry monitoring reveal sinus mechanism with PACs with no evidence of atrial fibrillation. Obtain 2D echo to assess cardiac structure and function There are no absolute contraindications for patient to proceed with surgical intervention from a cardiac standpoint Nurse practitioner note has been reviewed by physician. Signing provider agrees with the documented findings, assessment, and plan of care documented by GARMENT SEWER HAND as a scribe. Past Medical History Past Medical History: Unable to Obtain Additional Past Medical History / Comment(s): Diverticulitis History of Any Multi-Drug Resistant Organisms: Unobtainable Past Surgical History: Unable to Obtain Past Anesthesia/Blood Transfusion Reactions: No Reported Reaction Smoking Status: Unknown if ever smoked Past Alcohol Use History: Unable to Obtain Past Drug Use History: Unable to Obtain Medications and Allergies Home Medications Medication Instructions Recorded Confirmed Type ALPRAZolam [Xanax] 0.5 mg PO BID PRN 11/14/23 11/14/23 History Levothyroxine Sodium [Synthroid] 50 mcg PO SUFRSA 11/14/23 11/14/23 History Levothyroxine Sodium [Synthroid] 100 mcg PO MOTUWETH 11/14/23 11/14/23 History Allergies Allergy/AdvReac Type Severity Reaction Status Date / Time No Known Allergies Allergy Verified 11/14/23 12:36 Physical Exam Vitals: Vital Signs Temp Pulse Resp BP Pulse Ox 11/16/23 08:30 97.7 F 80 20 99/57 95 11/16/23 03:57 81 22 118/65 96 11/16/23 02:45 88 16 11/16/23 00:00 88 16 102/51 96 11/15/23 20:00 98.1 F 86 20 106/64 90 L 11/15/23 15:50 98.3 F 58 L 16 108/53 97 11/15/23 11:51 97.8 F 83 16 119/56 94 L Intake and Output 11/15/23 11/16/23 11/16/23 22:59 06:59 14:59 Intake Total 1240 Output Total 400 500 Balance 840 -500 Intake: Intake, IV Titration 1200 Amount Dextrose 5% in Water 1, 1200 000 ml @ 100 mls/hr IV . Q10H [facility] Rx#:[id number] Oral 40 Output: Urine 400 500 Uretheral (Garcia) 400 Other: Voiding Method Indwelling Catheter Indwelling Catheter Indwelling Catheter Results 11/15/23 07:40 11/16/23 07:02 Cardiac Enzymes 11/15/23 Range/Units 11:13 Troponin I 0.037 H* (0.000-0.034) ng/mL Comprehensive Metabolic Panel 11/16/23 Range/Units 07:02 Sodium 144 (137-145) mmol/L Potassium 3.6 (3.5-5.1) mmol/L Chloride 115 H (98-107) mmol/L Carbon Dioxide 20 L (22-30) mmol/L BUN 90 H (7-17) mg/dL Creatinine 1.53 H (0.52-1.04) mg/dL Glucose 117 H (74-99) mg/dL Calcium 8.0 L (8.4-10.2) mg/dL Current Medications Generic Name Dose Route Start Last Admin Trade Name Freq PRN Reason Stop Dose Admin Acetaminophen 650 mg 11/14/23 14:58 Acetaminophen Tab 325 Mg Tab PO Q6HR PRN Mild Pain or Fever > 100.5 Dextrose/Water 1,000 mls @ 100 mls/hr 11/15/23 10:45 11/16/23 06:37 Dextrose 5%-Water Iv Soln IV 100 mls/hr .Q10H JOHANA Administration Levothyroxine Sodium 50 mcg 11/14/23 15:00 11/15/23 06:36 Levothyroxine 50 Mcg Tab PO Not Given [id number] [facility] Levothyroxine Sodium 100 mcg 11/16/23 07:00 11/16/23 06:36 Levothyroxine 100 Mcg Tab PO 100 mcg [id number] [facility] Administration Naloxone HCl 0.2 mg 11/14/23 14:58 Naloxone 0.4 Mg/Ml 1 Ml Vial IV Q2M PRN Opioid Reversal Tramadol HCl 50 mg 11/14/23 14:58 Tramadol 50 Mg Tab PO Q6H PRN Moderate Pain (Scale 4 to 6) Intake and Output 11/15/23 11/16/23 11/16/23 22:59 06:59 14:59 Intake Total 1240 Output Total 400 500 Balance 840 -500 Intake: Intake, IV Titration 1200 Amount Dextrose 5% in Water 1, 1200 000 ml @ 100 mls/hr IV . Q10H [facility] Rx#:[id number] Oral 40 Output: Urine 400 500 Uretheral (Garcia) 400 Other: Voiding Method Indwelling Catheter Indwelling Catheter Indwelling Catheter 11/15/23 07:40 11/16/23 07:02
--- NOTE | 2023-11-16 11:56 | CA ---
Transthoracic Echo Report Name: Amalia Dobbins Age: 88 Gender: F : 1935 Exam Date: 11/16/2023 08:48 Exam Location: [facility] Ht (in): 60 Wt (lb): 105 Ordering Physician: Liana Suarez Attending/Referring Phys: [id number], Daniela Sql Etl Developer Torie Lane RDCS Procedure CPT: Indications: LVF Cardiac Hx: Technical Quality: Good Contrast 1: Total Dose (mL): Contrast 2: Total Dose (mL): MEASUREMENTS (Male / Female) Normal Values 2D ECHO LV Diastolic Diameter PLAX 3.8 cm 4.2 - 5.9 / 3.9 - 5.3 cm LV Systolic Diameter PLAX 3.0 cm IVS Diastolic Thickness 1.1 cm 0.6 - 1.0 / 0.6 - 0.9 cm LVPW Diastolic Thickness 1.3 cm 0.6 - 1.0 / 0.6 - 0.9 cm LV Relative Wall Thickness 0.6 RV Internal Dim ED PLAX 2.6 cm LVOT Diameter 2.3 cm LA Systolic Diameter LX 3.2 cm 3.0 - 4.0 / 2.7 - 3.8 cm LV Diastolic Volume MOD 4C 55.6 cm??? LV Systolic Volume MOD 4C 30.1 cm??? LV Ejection Fraction MOD 4C 45.9 % LV Cardiac Index MOD 4C 1437.0 cm???/min???m??? LV Diastolic Length 4C 6.0 cm LV Systolic Length 4C 5.3 cm LV Diastolic Volume MOD 2C 78.6 cm??? LV Systolic Volume MOD 2C 42.7 cm??? LV Ejection Fraction MOD 2C 45.6 % LV Cardiac Index MOD 2C 2019.5 cm???/min???m??? LV Diastolic Length 2C 6.6 cm LV Systolic Length 2C 5.7 cm LA Volume 41.9 cm??? 18 - 58 / 22 - 52 cm??? LA Volume Index 29.4 cm???/m??? 16 - 28 cm???/m??? DOPPLER AV Peak Velocity 272.2 cm/s AV Peak Gradient 29.6 mmHg AV Mean Velocity 183.0 cm/s AV Mean Gradient 16.5 mmHg AV Velocity Time Integral 55.3 cm LVOT Peak Velocity 91.5 cm/s LVOT Peak Gradient 3.4 mmHg AV Area Cont Eq pk 1.4 cm??? MV Area PHT 2.6 cm??? Mitral E Point Velocity 77.4 cm/s Mitral A Point Velocity 105.2 cm/s Mitral E to A Ratio 0.7 MV Deceleration Time 290.3 ms TR Peak Velocity 290.4 cm/s TR Peak Gradient 33.7 mmHg Right Ventricular Systolic Press 36.3 mmHg FINDINGS Left Ventricle Left ventricular ejection fraction is estimated at 50-55%. Left ventricular cavity size normal. Mildly increased left ventricular wall thickness. Right Ventricle Normal right ventricular size. Mild pulmonary hypertension. Right Atrium Normal right atrial size. Left Atrium Mildly increased left atrial volume. Mitral Valve Mitral valve thickened. Mild mitral annular calcification. Mild mitral regurgitation. Aortic Valve Trileaflet aortic valve. Aortic valve sclerosis. Mild aortic stenosis with a peak gradient of 30 mmHg and a mean gradient of 17 mmHg. Mild aortic regurgitation. Tricuspid Valve Structurally normal tricuspid valve. Mild tricuspid regurgitation. Pulmonic Valve Structurally normal pulmonic valve. Trace to mild pulmonic regurgitation. Pericardium No pericardial effusion. Aorta Normal size aortic root and proximal ascending aorta. CONCLUSIONS 1. Left ventricle systolic function borderline normal 2. Mild aortic stenosis with mild regurgitation 3. Mild mitral and tricuspid regurgitation and mild pulmonary hypertension Previewed by: Dr. Medardo Guzmán MD (Electronically Signed) Final Date: 16 November 2023 11:56
[2023-11-16 12:14] LABS: Glucose,Whole Blood 125 mg/dL (70-110)
--- NOTE | 2023-11-16 13:03 | P.PN ---
Subjective Patient is seen for follow-up for acute kidney injury and hypernatremia. Patient has been confused. Maintained on D5W. Serum creatinine is down to 1.5 from 2.3 yesterday. Urine output at 900 mL for 24 hours. Patient has indwelling Garcia catheter. Objective - Vital Signs Vital signs: Vital Signs Temp 97.7 F 11/16/23 08:30 Pulse 89 11/16/23 11:00 Resp 16 11/16/23 11:00 BP 125/65 11/16/23 11:00 Pulse Ox 99 11/16/23 11:00 FiO2 Intake & Output 11/15/23 11/16/23 11/16/23 18:59 06:59 18:59 Intake Total 1360 Output Total 400 500 Balance 960 -500 Intake: Intake, IV Titration 1200 Amount Dextrose 5% in Water 1, 1200 000 ml @ 100 mls/hr IV . Q10H [facility] Rx#:[id number] Oral 160 Output: Urine 400 500 Uretheral (Garcia) 400 Other: Voiding Method Indwelling Catheter Indwelling Catheter Indwelling Catheter - Exam Patient is awake, comfortable, in no acute distress Patient is confused Examination of the heart S1 and S2 Examination of the lungs bilateral breath sounds are heard Abdomen is soft nontender Examination of lower extremities shows no evidence of edema. - Labs CBC & Chem 7: 11/15/23 07:40 11/16/23 07:02 Labs: Abnormal Lab Results - Last 24 Hours (Table) 11/15/23 11/15/23 11/16/23 Range/Units 16:37 20:06 07:02 Chloride 115 H (98-107) mmol/L Carbon Dioxide 20 L (22-30) mmol/L BUN 90 H (7-17) mg/dL Creatinine 1.53 H (0.52-1.04) mg/dL Glucose 117 H (74-99) mg/dL POC Glucose (mg/dL) 135 H 130 H (70-110) mg/dL Calcium 8.0 L (8.4-10.2) mg/dL 11/16/23 Range/Units 12:13 Chloride (98-107) mmol/L Carbon Dioxide (22-30) mmol/L BUN (7-17) mg/dL Creatinine (0.52-1.04) mg/dL Glucose (74-99) mg/dL POC Glucose (mg/dL) 125 H (70-110) mg/dL Calcium (8.4-10.2) mg/dL Assessment and Plan Assessment: 1. TOMI likely secondary to ATN, nonoliguric. Improved with IV hydration. UA showed no active sediment. 2. Hypernatremia due to dehydration and poor oral intake 3. Metabolic acidosis due to tomi 4. Fall with left femur fracture Plan: continue D5W Okay to proceed with surgery from nephrology standpoint.
[2023-11-16] MEDS ORDERED: ONDANSETRON 4 MG/2 ML VIAL IVP PRN (14:44)
--- NOTE | 2023-11-16 14:44 | P.PN ---
Subjective Progress Note Date: 11/16/23 This is a pleasant 88-year-old female who comes to the hospital after being found with unknown downtime. Patient per EMS was unresponsive at the time of finding patient on laying on the ground. She presented to the hospital for evaluation. On admission her creatinine was found to be 2.0 with a BUN of 104 she was treated for dehydration with IV fluids and a nephrology consultation and today her BUN is down to 90 and her creatinine is 1.53 she has had adequate urine output. Nephrology has cleared the patient for surgical intervention of the left femur fracture. We will continue IV fluids overnight and repeat labs in the morning. Patient was also found to have an elevated troponin of 0.037 and was evaluated by cardiology for surgical clearance, echocardiogram was completed showing left ventricular systolic function of borderline normal with an EF of 50 to 55% patient has mild aortic stenosis with mild regurgitation and mild mitral and tricuspid regurgitation with mild pulmonary hypertension. It was question if the patient was in atrial fibrillation however after review patient appears to be in sinus mechanism with PACs and there has been no evidence of atrial fibrillation. Cardiology has evaluated the patient and found the patient to have no absolute contraindications for surgical intervention of the left femur fracture. It is evaluated today at the bedside with family. She is awake alert oriented x 2. She is complaining of minimal pain to the left hip however does report some pain to her right great toe where there appears to be an abrasion/deep tissue injury likely due to the prolonged downtime. Medically patient is considered low operative risk and cleared medically to undergo surgical repair of the left humeral fracture. Review of Systems Constitutional: Denied any fatigue denied any fever. Cardio vascular: denied any chest pain, palpitations Gastrointestinal: denied any nausea, vomiting, diarrhea Pulmonary: Denied any shortness of breath cough Neurologic denied any new focal deficits All inpatient medications were reviewed and appropriate changes in these medications as dictated in the interval history and assessment and plan. PHYSICAL EXAMINATION: GENERAL: The patient is alert and oriented x2, not in any acute distress. Well developed, well nourished. HEENT: Pupils are round and equally reacting to light. EOMI. No scleral icterus. No conjunctival pallor. Normocephalic, atraumatic. No pharyngeal erythema. No thyromegaly. Crusty drainage from the right eye. CARDIOVASCULAR: S1 and S2 present. No murmurs, rubs, or gallops. PULMONARY: Chest is clear to auscultation, no wheezing or crackles. ABDOMEN: Soft, nontender, nondistended, normoactive bowel sounds. No palpable organomegaly. MUSCULOSKELETAL: No joint swelling or deformity. EXTREMITIES: No cyanosis, clubbing, or pedal edema. Indwelling catheter present NEUROLOGICAL: Gross neurological examination did not reveal any focal deficits. SKIN: No rashes. Right great toe with blackened abrasion. Assessment and plan -Fall with left femur fracture with unknown downtime. patient is low to moderate operative risk given age and medical comorbidities and cleared medically to undergo surgical intervention scheduled for tomorrow 11/17/2023. Benefits outweigh the risk to improve patients functionality as patient was ambulatory and independent prior to fall. - -Acute renal injury/dehydration due to ATN patient is being hydrated with nephrology consultation following creatinine has improved down to 0.53 we will continue with IV fluids overnight and repeat labs in the morning -Transaminitis likely due to the downtime we will monitor LFTs -Hypernatremia from dehydration and poor oral intake improving with IV fluids which will be continued. -Hypothyroidism patient is continued on the same home dose of levothyroxine with a normal TSH level. -Mention Of atrial fibrillation which has been ruled out EKG reveals sinus rhythm with PACs -History of anxiety maintained on Xanax which we would recommend to wean as this can cause significant confusion in the elderly -Systolic murmur with mention of mild to moderate aortic stenosis per echocardiogram -Right eye conjunctivitis will add antibiotic eye drops for the next 7 days. -Altered mental status due to acute metabolic encephalopathy secondary to Acute kidney injury and possible component of medication affect from xanax. Improving. GI prophylaxis DVT prophylaxis Full Code Orthopedics planning on surgical intervention of the left fumer fracture as above patient is medically cleared for surgery. Continue antibiotic eye gtts. Continue indwelling catheter until patient is weight bearing. PT/OT consultation to evaluate patient post surgery. Continue with incentive spirometer 10 x an hour while awake. The impression and plan of care has been dictated by Karla Vargas Nurse Practitioner as directed. Dr. Brian MD I have performed a history and physical examination and medical decision making of this patient, discussed the same with the dictator, and agree with the dictators assessment and plan as written, documented as a scribe. Based on total visit time, I have performed more than 50% of this visit. - Objective - Vital Signs Vital signs: Vital Signs Temp 97.7 F 11/16/23 08:30 Pulse 80 11/16/23 08:30 Resp 20 11/16/23 08:30 BP 99/57 11/16/23 08:30 Pulse Ox 95 11/16/23 08:30 FiO2 Intake & Output 11/15/23 11/16/23 11/16/23 18:59 06:59 18:59 Intake Total 1360 Output Total 400 500 Balance 960 -500 Intake: Intake, IV Titration 1200 Amount Dextrose 5% in Water 1, 1200 000 ml @ 100 mls/hr IV . Q10H [facility] Rx#:[id number] Oral 160 Output: Urine 400 500 Uretheral (Garcia) 400 Other: Voiding Method Indwelling Catheter Indwelling Catheter Indwelling Catheter - Labs CBC & Chem 7: 11/15/23 07:40 11/16/23 07:02 Labs: Abnormal Lab Results - Last 24 Hours (Table) 11/15/23 11/15/23 11/15/23 Range/Units 10:15 10:30 10:31 Chloride (98-107) mmol/L Carbon Dioxide (22-30) mmol/L BUN (7-17) mg/dL Creatinine (0.52-1.04) mg/dL Glucose (74-99) mg/dL POC Glucose (mg/dL) 51 L 50 L 157 H (70-110) mg/dL Calcium (8.4-10.2) mg/dL Troponin I (0.000-0.034) ng/mL 11/15/23 11/15/23 11/15/23 Range/Units 11:13 11:52 16:37 Chloride (98-107) mmol/L Carbon Dioxide (22-30) mmol/L BUN (7-17) mg/dL Creatinine (0.52-1.04) mg/dL Glucose (74-99) mg/dL POC Glucose (mg/dL) 133 H 135 H (70-110) mg/dL Calcium (8.4-10.2) mg/dL Troponin I 0.037 H* (0.000-0.034) ng/mL 11/15/23 11/16/23 Range/Units 20:06 07:02 Chloride 115 H (98-107) mmol/L Carbon Dioxide 20 L (22-30) mmol/L BUN 90 H (7-17) mg/dL Creatinine 1.53 H (0.52-1.04) mg/dL Glucose 117 H (74-99) mg/dL POC Glucose (mg/dL) 130 H (70-110) mg/dL Calcium 8.0 L (8.4-10.2) mg/dL Troponin I (0.000-0.034) ng/mL Assessment and Plan Time with Patient: Less than 30
[2023-11-16] MEDS: CIPROFLOXACIN 0.3% OPHTH SOLN 5 ML BTL RIGHT EYE SCH (15:29)
[2023-11-16 16:49] LABS: Glucose,Whole Blood 140 mg/dL (70-110)
[2023-11-16] MEDS: HEPARIN SODIUM,PORCINE 5,000 UNIT/ML 1 ML VIAL SQ SCH (20:20)
[2023-11-16] MEDS: traMADol 50 MG TAB PO PRN (20:20)
[2023-11-16 20:41] LABS: Glucose,Whole Blood 126 mg/dL (70-110)
[2023-11-17 06:12] LABS: Glucose,Whole Blood 117 mg/dL (70-110)
[2023-11-17] MEDS ORDERED: LIDOCAINE 1% (10MG/ML) FOR IV START INTRADERMA PRN (06:26)
[2023-11-17] MEDS: LACTATED RINGERS 1,000 ML IV SCH (06:50)
[2023-11-17] MEDS ORDERED: HYDROmorphone 0.5 MG/0.5 ML SYRINGE IVP PRN (07:00)
--- NOTE | 2023-11-17 11:17 | P.PN ---
Subjective HISTORY OF PRESENT ILLNESS: This is a 88-year-old female with a past medical history significant for anxiety and hypothyroidism. Patient does not follow with a bilingual office assistant. We have been asked to see the patient in consultation for atrial fibrillation. Patient examined at the bedside. Patient presented to the hospital after being found laying on the floor. The patient's last known well time was approximately 4 days prior to this. The patient was found to have a left hip fracture and is scheduled to undergo surgical intervention. Patient is somewhat confused at the time of examination. The patient denies any chest pain or pressure. She denies shortness of breath. Denies palpitations. Vital signs are stable. Initial EKG interpreted by computer as atrial fibrillation. There is significant baseline artifact. However this EKG appears to be sinus mechanism. Repeat EKGs and telemetry monitoring reveal sinus mechanism with PACs with no evidence of atrial fibrillation. DIAGNOSTICS: - EKG reveals sinus mechanism with PACs. Lateral T wave inversions - Chest xray negative for acute process. - Laboratory data: WBC 9.5. Hemoglobin 12.1. Platelet count 231. Sodium 144. Potassium 3.6. BUN 90. Creatinine 1.53. Troponin 0.023. 0.037. - Current home cardiac medications include none. 11/17/2023 Patient examined this morning at the bedside. She denies chest pain or pressure. Denies shortness of breath. Telemetry reveals sinus mechanism with PACs. Echocardiogram completed revealing ejection fraction 50 to 55%, mild p ulmonary hypertension, mild aortic stenosis, mild aortic regurgitation, mild mitral and tricuspid regurgitation. PHYSICAL EXAM: VITAL SIGNS: Reviewed. GENERAL: Well-developed in no acute distress. HEENT: Head is normocephalic. Pupils are equal, round. Sclerae anicteric. Mucous membranes of the mouth are moist. Neck supple. No JVD or thyromegaly LUNGS: Respirations even and unlabored. Lungs essentially clear to auscultation bilaterally. HEART: Regular rate and rhythm. S1 and S2 heard. ABDOMEN: Soft. Nondistended. Nontender. EXTREMITIES: Normal range of motion. No clubbing or cyanosis. Peripheral pulses intact. No lower extremity edema NEUROLOGIC: Awake and alert. Oriented x 1-2. ASSESSMENT: Left hip fracture, status post fall Atrial fibrillation, ruled out EKG reveals sinus mechanism with PACs Acute kidney injury Hypothyroidism Anxiety Held aortic stenosis and regurgitation PLAN: 2D echo obtained and reviewed No evidence of atrial fibrillation on telemetry monitoring There are no absolute contraindications for patient to proceed with surgical intervention from a cardiac standpoint We will sign off. Please reconsult if needed. Nurse practitioner note has been reviewed by physician. Signing provider agrees with the documented findings, assessment, and plan of care documented by GRAVITY PROSPECTING SUPERVISOR as a scribe. Objective - Vital Signs Vital signs: Vital Signs Temp 98.2 F 11/17/23 08:00 Pulse 92 11/17/23 08:00 Resp 18 11/17/23 08:00 BP 129/68 11/17/23 08:00 Pulse Ox 96 11/17/23 08:00 FiO2 Intake & Output 11/16/23 11/17/23 11/17/23 18:59 06:59 18:59 Output Total 550 1400 Balance -550 -1400 Output: Urine 550 1400 Other: Voiding Method Indwelling Catheter Indwelling Catheter Indwelling Catheter # Bowel Movements 0 - Labs CBC & Chem 7: 11/15/23 07:40 11/16/23 07:02 Labs: Abnormal Lab Results - Last 24 Hours (Table) 11/16/23 11/16/23 11/16/23 Range/Units 12:13 16:47 20:39 POC Glucose (mg/dL) 125 H 140 H 126 H (70-110) mg/dL 11/17/23 Range/Units 06:11 POC Glucose (mg/dL) 117 H (70-110) mg/dL
--- NOTE | 2023-11-17 11:18 | P.CONS ---
History of Present Illness - Reason for Consult Consult date: 11/17/23 wound care - History of Present Illness This is an 88-year-old patient who is a poor historian being seen on 3 S. for nonhealing ulcers to the right foot. Patient has eschar To the right great toe right dorsal toe and right left digit. No open ulcerations or drainage noted. Unable to obtain patient's medical history related to mental status. Review of systems: Unable to obtain due to patient's mental status Physical exam: General Appearance: Alert, cooperative, no distress, appears stated age. Skin: See HPI all other Skin color, texture, tugor normal, no rashes or lesions. Neurologic: Alert oriented x3 Assessment: 1. Nonhealing ulcer patient other part of right foot limited to skin breakdown Plan: 1. At this time no dressings are required. If the ulcerations opened up with drainage apply honey gel to the site. Thank you for the consultation any questions please contact the wound care center DNP note has been reviewed and discussed with Dr. Gee and the impression and plan of care has been directed as dictated. Past Medical History Past Medical History: Unable to Obtain Additional Past Medical History / Comment(s): Diverticulitis History of Any Multi-Drug Resistant Organisms: Unobtainable Past Surgical History: Unable to Obtain Past Anesthesia/Blood Transfusion Reactions: No Reported Reaction Smoking Status: Unknown if ever smoked Past Alcohol Use History: Unable to Obtain Past Drug Use History: Unable to Obtain Medications and Allergies Home Medications Medication Instructions Recorded Confirmed Type ALPRAZolam [Xanax] 0.5 mg PO BID PRN 11/14/23 11/14/23 History Levothyroxine Sodium [Synthroid] 50 mcg PO SUFRSA 11/14/23 11/14/23 History Levothyroxine Sodium [Synthroid] 100 mcg PO MOTUWETH 11/14/23 11/14/23 History Allergies Allergy/AdvReac Type Severity Reaction Status Date / Time No Known Allergies Allergy Verified 11/14/23 12:36 Physical Exam Vitals: Vital Signs Temp Pulse Resp BP Pulse Ox 11/17/23 08:00 98.2 F 92 18 129/68 96 11/17/23 04:00 98.1 F 81 20 106/54 97 11/17/23 01:59 73 14 11/17/23 00:00 73 14 118/72 94 L 11/16/23 20:00 97.6 F 85 18 115/53 95 11/16/23 15:25 98.0 F 88 20 119/66 97 Intake and Output 11/16/23 11/17/23 11/17/23 22:59 06:59 14:59 Output Total 1100 850 Balance -1100 -850 Output: Urine 1100 850 Other: Voiding Method Indwelling Catheter Indwelling Catheter Indwelling Catheter # Bowel Movements 0 Results CBC & Chem 7: 11/15/23 07:40 11/16/23 07:02 Labs: Abnormal Lab Results - Last 24 Hours (Table) 11/16/23 11/16/23 11/16/23 Range/Units 12:13 16:47 20:39 POC Glucose (mg/dL) 125 H 140 H 126 H (70-110) mg/dL 11/17/23 Range/Units 06:11 POC Glucose (mg/dL) 117 H (70-110) mg/dL Assessment and Plan (1) Non-pressure chronic ulcer of other part of right foot limited to breakdown of skin Current Visit: Yes Status: Acute Code(s): L97.511 - NON-PRS CHRONIC ULCER O TH PRT R FOOT LIMITED TO BRKDWN SKIN SNOMED Code(s): 01445261210901427
[2023-11-17 11:29] LABS: Glucose,Whole Blood 97 mg/dL (70-110)
[2023-11-17 12:03] LABS: Basophils % (A) 0 %; Eosinophils % (A) 0 %; HCT 36.3 % (34.0-46.0); HGB 11.5 gm/dL (11.4-16.0); Hypochromasia Slight; Lymphocytes # (A) 0.8 k/uL (1.0-4.8); Lymphocytes % (A) 8 %; MCH 32.1 pg (25.0-35.0); MCHC 31.6 g/dL (31.0-37.0); MCV 101.6 fL (80.0-100.0); Macrocytosis Slight; Mean Platelet Volume 9.2; Monocytes # (A) 0.5 k/uL (0-1.0); Monocytes % (A) 6 %; Neutrophils # (A) 7.6 k/uL (1.3-7.7); Neutrophils % (A) 84 %; Platelet Count 185 k/uL (150-450); RBC 3.58 m/uL (3.80-5.40); RDW 12.9 % (11.5-15.5); WBC 9.1 k/uL (3.8-10.6)
[2023-11-17] MEDS: IV FLUID CONTINUATION 1,000 ML IV ONE (12:26)
[2023-11-17 12:47] LABS: Glucose,Whole Blood 106 mg/dL (70-110)
[2023-11-17 12:48] LABS: African American GFR (CKD) 72 (>60 ml/min/1.73 sqM); Anion Gap 2 mmol/L; Blood Urea Nitrogen 48 mg/dL (7-17); Carbon Dioxide 21 mmol/L (22-30); Chloride 112 mmol/L (98-107); Glucose 100 mg/dL (74-99); Magnesium 2.2 mg/dL (1.6-2.3); Non-African American GFR(CKD) 63 (>60 ml/min/1.73 sqM); Potassium 3.8 mmol/L (3.5-5.1); Sodium 135 mmol/L (137-145)
[2023-11-17] MEDS: DEXAMETHASONE SOD PHOSPHATE 4 MG/ML 1 ML VIAL IVP ONE (12:53)
[2023-11-17] MEDS: ONDANSETRON 4 MG/2 ML VIAL IVP ONE (12:54)
[2023-11-17] MEDS ORDERED: TRANEXAMIC ACID 1,000 MG in SODIUM CHLORIDE 0.9% 100 ML IVPB PRN ×2 (13:41→13:42)
[2023-11-17] MEDS ORDERED: ROPIVACAINE 246.25 MG, EPINEPHrine 0.5 MG, KETOROLAC (30 mg/mL) 30 MG, cloNIDine HCL/PF... MISCELLANE ONE (13:44)
[2023-11-17] MEDS ORDERED: HYDROcodone/APAP 5-325MG 1 EACH TAB PO PRN ×2 (13:46)
[2023-11-17] MEDS ORDERED: ROCURONIUM 10 MG/ML (5 ML VIAL) IV ONE (13:55)
[2023-11-17] MEDS ORDERED: GLYCOPYRROLATE 0.2 MG/ML 2 ML VIAL ONE (13:55)
[2023-11-17] MEDS ORDERED: NEOSTIGMINE 1 MG/ML 10 ML VIAL ONE (13:55)
[2023-11-17] MEDS ORDERED: TRANEXAMIC 1,000 MG/100ML-NACL PREMIX BAG ONE (13:55)
[2023-11-17] MEDS ORDERED: fentaNYL (PF) 50 MCG/ML 2 ML AMP ONE (13:55)
[2023-11-17] MEDS ORDERED: LIDOCAINE 1% INJ 10MG/ML (20 ML MDV) ONE (13:55)
[2023-11-17] MEDS ORDERED: PHENYLEPHRINE 10 MG/ML VIAL ONE (13:55)
[2023-11-17] MEDS ORDERED: PROPOFOL 10 MG/ML 20 ML VIAL IV ONE (13:55)
[2023-11-17] MEDS: ceFAZolin 1 GM in DEXTROSE/WATER 1 50ML.BAG IVPB PRN (13:55)
[2023-11-17] MEDS: ROPIVACAINE/EPI/CLONIDINE/KET 50 ML SYRINGE MISCELLANE PRN (14:32)
[2023-11-17] MEDS: EPINEPHrine 2 MG in SODIUM CHLORIDE 0.9% 200 ML IV ONE (14:32)
[2023-11-17] MEDS: VANCOMYCIN 1,000 MG VIAL MISCELLANE ONE (14:45)
--- NOTE | 2023-11-17 15:35 | P.PN ---
Subjective Progress Note Date: 11/17/23 This is a pleasant 88-year-old female who comes to the hospital after being found with unknown downtime. Patient per EMS was unresponsive at the time of finding patient on laying on the ground. She presented to the hospital for evaluation. On admission her creatinine was found to be 2.0 with a BUN of 104 she was treated for dehydration with IV fluids and a nephrology consultation and today her BUN is down to 90 and her creatinine is 1.53 she has had adequate urine output. Nephrology has cleared the patient for surgical intervention of the left femur fracture. We will continue IV fluids overnight and repeat labs in the morning. Patient was also found to have an elevated troponin of 0.037 and was evaluated by cardiology for surgical clearance, echocardiogram was completed showing left ventricular systolic function of borderline normal with an EF of 50 to 55% patient has mild aortic stenosis with mild regurgitation and mild mitral and tricuspid regurgitation with mild pulmonary hypertension. It was question if the patient was in atrial fibrillation however after review patient appears to be in sinus mechanism with PACs and there has been no evidence of atrial fibrillation. Cardiology has evaluated the patient and found the patient to have no absolute contraindications for surgical intervention of the left femur fracture. It is evaluated today at the bedside with family. She is awake alert oriented x 2. She is complaining of minimal pain to the left hip however does report some pain to her right great toe where there appears to be an abrasion/deep tissue injury likely due to the prolonged downtime. Medically patient is considered low operative risk and cleared medically to undergo surgical repair of the left humeral fracture. 11/17/2023 Patient is evaluated today resting in bed she is more awake alert than yesterday she is currently alert x 2 she did not know where she was today. She does state that her right eye feels better it is not as close today and she will continue on the antibiotic eyedrops. Blood work comes back today within normal creatinine and a BUN of 48, sodium 135, chloride 112, CO2 21. He continues on D5 water at 100 MLS per hour he has been n.p.o. for surgery. She is scheduled to undergo left hip hemiarthroplasty today. She was downgraded to the medical floor. She will be evaluated by physical therapy postsurgical. Can continue with the indwelling catheter until more ambulatory. Review of Systems Constitutional: Denied any fatigue denied any fever. Cardio vascular: denied any chest pain, palpitations Gastrointestinal: denied any nausea, vomiting, diarrhea Pulmonary: Denied any shortness of breath cough Neurologic denied any new focal deficits All inpatient medications were reviewed and appropriate changes in these medicat ions as dictated in the interval history and assessment and plan. PHYSICAL EXAMINATION: GENERAL: The patient is alert and oriented x2, not in any acute distress. Well developed, well nourished. HEENT: Pupils are round and equally reacting to light. EOMI. No scleral icterus. No conjunctival pallor. Normocephalic, atraumatic. No pharyngeal erythema. No thyromegaly. Crusty drainage from the right eye. CARDIOVASCULAR: S1 and S2 present. No murmurs, rubs, or gallops. PULMONARY: Chest is clear to auscultation, no wheezing or crackles. ABDOMEN: Soft, nontender, nondistended, normoactive bowel sounds. No palpable organomegaly. MUSCULOSKELETAL: No joint swelling or deformity. EXTREMITIES: No cyanosis, clubbing, or pedal edema. Indwelling catheter present NEUROLOGICAL: Gross neurological examination did not reveal any focal deficits. SKIN: No rashes. Right great toe with blackened abrasion. Assessment and plan -Fall with left femur fracture with unknown downtime. patient is low to moderate operative risk given age and medical comorbidities and cleared medically to undergo surgical intervention scheduled for tomorrow 11/17/2023. Benefits outweigh the risk to improve patients functionality as patient was ambulatory and independent prior to fall. -Acute renal injury/dehydration due to ATN patient is being hydrated with nephrology consultation in place. Creatinine has normalized, IV fluids will be continued. -Transaminitis likely due to the downtime we will monitor LFTs -Hypernatremia from dehydration and poor oral intake improving with IV fluids which will be continued. -Hypothyroidism patient is continued on the same home dose of levothyroxine with a normal TSH level. -Mention Of atrial fibrillation which has been ruled out EKG reveals sinus rhythm with PACs -History of anxiety maintained on Xanax which we would recommend to wean as this can cause significant confusion in the elderly -Systolic murmur with mention of mild to moderate aortic stenosis per echocardio gram -Right eye conjunctivitis will add antibiotic eye drops for the next 7 days. -Altered mental status due to acute metabolic encephalopathy secondary to Acute kidney injury and possible component of medication affect from xanax. Improving. GI prophylaxis DVT prophylaxis Full Code Orthopedics planning on surgical intervention of the left fumer fracture as above patient is medically cleared for surgery. Continue antibiotic eye gtts. Continue indwelling catheter until patient is weight bearing. PT/OT consultation to evaluate patient post surgery. Continue with incentive spirometer 10 x an hour while awake. The impression and plan of care has been dictated by Nurse July Prac titioner as directed. Dr. Brian MD I have performed a history and physical examination and medical decision making of this patient, discussed the same with the dictator, and agree with the dictators assessment and plan as written, documented as a scribe. Based on total visit time, I have performed more than 50% of this visit. - Objective - Vital Signs Vital signs: Vital Signs Temp 98.5 F 11/17/23 12:37 Pulse 79 11/17/23 12:37 Resp 18 11/17/23 12:37 BP 132/62 11/17/23 12:37 Pulse Ox 97 11/17/23 12:37 FiO2 Intake & Output 11/16/23 11/17/23 11/17/23 18:59 06:59 18:59 Intake Total 51 Output Total 550 1400 800 Balance -697 -1400 -510 Intake: IV 51 Output: Urine 550 1400 800 Other: Voiding Method Indwelling Catheter Indwelling Catheter Indwelling Catheter # Bowel Movements 0 - Labs CBC & Chem 7: 11/17/23 11:20 11/17/23 11:20 Labs: Abnormal Lab Results - Last 24 Hours (Table) 11/16/23 11/16/23 11/17/23 Range/Units 16:47 20:39 06:11 RBC (3.80-5.40) m/uL MCV (80.0-100.0) fL Lymphocytes # (1.0-4.8) k/uL Sodium (137-145) mmol/L Chloride (98-107) mmol/L Carbon Dioxide (22-30) mmol/L BUN (7-17) mg/dL Glucose (74-99) mg/dL POC Glucose (mg/dL) 140 H 126 H 117 H (70-110) mg/dL Calcium (8.4-10.2) mg/dL 11/17/23 11/17/23 Range/Units 11:20 11:20 RBC 3.58 L (3.80-5.40) m/uL MCV 101.6 H (80.0-100.0) fL Lymphocytes # 0.8 L (1.0-4.8) k/uL Sodium 135 L (137-145) mmol/L Chloride 112 H (98-107) mmol/L Carbon Dioxide 21 L (22-30) mmol/L BUN 48 H (7-17) mg/dL Glucose 100 H (74-99) mg/dL POC Glucose (mg/dL) (70-110) mg/dL Calcium 8.0 L (8.4-10.2) mg/dL Assessment and Plan Time with Patient: Less than 30
--- NOTE | 2023-11-17 15:49 | P.OP ---
Date of Procedure: 11/17/23 Preoperative Diagnosis: 1. Displaced left subcapital femoral neck fracture 2. Multiple medical problems Postoperative Diagnosis: Same Procedure(s) Performed: Left direct anterior hip hemiarthroplasty Implants: Edgard Accolade C #4 STD offset, 46-mm OD Bipolar Head, 28-mm ID, -4mm neck Anesthesia: mariusz SILVA Surgeon: Stefan Rodriguez Inspector Balance Bridge #1: Carito Green Estimated Blood Loss (ml): 100 IV fluids (ml): 700 Urine output (ml): 100 Pathology: none sent Condition: stable Disposition: PACU Indications for Procedure: The patient is an 88-year-old female with multiple medical problems who had a fall several days ago and was down for 4 days before being found brought to the emergency department. Due to her multiple medical problems she was admitted under the care of internal medicine and orthopedics was consulted for a displaced subcapital femoral neck fracture. Due to her frail medical states she required medical optimization and was cleared for surgery. I met with the patient and their family to discuss treatment options. The patient has a displaced femoral neck fracture and based on their age, activity level, and medical comorbidities I recommended a hip hemiarthroplasty to facilitate early mobilization. My recommendation was to perform the hemiarthroplasty through a direct anterior approach to help lower the risk of dislocation and improve po stoperative recovery and use cemented fixation of the femoral component to reduce the risk of fracture and postoperative thigh pain. We discussed the potential risks and complications of a hemiarthroplasty for displaced femoral neck fracture at length. Risks discussed include are certainly not limited to risks from anesthesia, superficial infection requiring local wound care and possibly surgical debridement, deep periprosthetic joint infection and the treatment for this, damage to local blood vessels or nerves particularly the lateral femoral cutaneous nerve, intraoperative fracture, postoperative periprosthetic fracture, leg length discrepancy, hip dislocation, aseptic loosening, groin pain, thigh pain, progression of arthritis requiring conversion to total hip arthroplasty, complications related to cementing the component, an inability to regain preinjury level of function, DVT, PE, acute coronary event, stroke, pneumonia, urinary tract infection, failure to thrive, and possibly . The patient and their family understand that while these are the most common complications other less common complications are possible. They provided their verbal and written consent to go forward with surgery. Operative Findings: There is a subacute subcapital femoral neck fracture with a red tinged clear effusion in the hip joint. The patient had extremely poor bone quality. Description of Procedure: The patient was identified in the preoperative holding area and the correct hip was marked with my initials. I reviewed the procedure and consent with the patient. All of their questions were answered. The patient was then brought back into the operating room by anesthesia. While on the [facility] anesthesia was administered by the anesthesia team. Preoperative antibiotics and tranexamic acid were also given. After the patient was under anesthesia I examined their ankles to determine their preoperative leg length discrepancy. The skin over the anterior aspect of the hip was shaved to remove hair over the site of planned incision. Both feet and ankles were padded with webril and boots for the [place] were applied. The patient was then carefully transferred onto the [place] table. A perineal post was immediately placed. The arms were placed on arm holders and were well-padded. Both boots were secured to the spars on the [place] table. The patient was positioned so that the pelvis was centered over the post. Nonsterile drapes were applied. A timeout was performed identifying the correct patient, operative extremity, and procedure. At this point fluoroscopy was brought in to take preoperative images of the pelvis and operative hip. A metallic bar was used to create a bi-ischial line for use as a reference to leg length adjustments during the procedure. Global offset was also measured on both the operative and nonoperative leg. Fluoroscopy was then brought out and a pre-scrub using a chlorhexidine scrub brush was performed. The operative limb was then prepped and draped in the standard sterile fashion. An anterior longitudinal incision was made lateral and distal to the ASIS. The skin and subcutaneous tissues were incised sharply. The underlying tensor fascia was identified and incised in its midportion. The fascia was dissected free from the underlying muscle and the muscle belly was retracted. A blunt tipped cobra retractor was placed over the superior neck under the muscle fibers of the gluteus minimus. The deep enveloping fascia of the tensor was incised. The anterior leash of vessels were then identified and cauterized. The fascia between the rectus and the capsule was then incised and the pre-capsular fat was excised. A second Cobra was placed inferior to the neck. The interval between the rectus and iliocapsularis and the hip capsule was developed and a retractor was placed carefully over the anterior rim of the acetabulum. A T-shaped anterior capsulotomy was performed. A hemarthrosis consistent with a femoral neck fracture was identified. The superior capsular leaflet was left in place in the inferior capsular flap was excised. The Cobra retractors were placed intracapsularly. A displaced femoral neck fracture was then identified. We then made a femoral neck osteotomy according to preoperative and intraoperative templating and confirmed the level of the osteotomy using fluoroscopic imaging. The femoral head was removed, passed off to the back table, and sized. The superior capsular flap was excised. On inspection of the acetabulum there were minimal degenerative changes with intact cartilage. Attention was then turned to the femur. The remnant dorsal lateral capsule was excised. The short external rotators were visible and protected. A bone hook was used to confirm appropriate translation of the trochanter away from the acetabulum. The leg was then extended and adducted and the bone hook was used to elevate the femur for broaching. A box osteotome and blunt tipped canal sound was then utilized to gain access to the femoral canal. We then sequentially broached the femur in appropriate anteversion until torsional stability was achieved and the implant was felt to have reached the appropriate size to allow trialing. The neck cut was brought flush to the trial broach with a calcar planar. A trial neck and head were then placed onto the broach and the hip was atraumatically reduced under direct visualization. External rotation to 90 was performed to assess stability. Fluoroscopy was brought in. An AP and lateral fluoroscopic image of the proximal femur was obtained to assess position and fill of the trial broach. An AP of the pelvis was then obtained and matched to the preoperative image taken. A bi-ischial bar was then placed and measurements were taken to assess changes in length and offset. The hip was then carefully dislocated, the proximal femur was exposed, and the trial implants were removed. The proximal femur was then prepared for cementing. The canal was thoroughly irrigated with pulsatile lavage to remove blood and marrow contents. A cement restrictor was placed to a depth just distal to the tip of the final implant. Epinephrine-soaked gauze was then packed into the proximal femur. 2 bags of cement with antibiotics were then mixed using a centrifuge and placed into a cement gun. Anesthesia was notified that cementing was about to commence to make sure the patient was appropriately ventilated and hydrated. Once the cement had reached appropriate consistency, the cement gun was used to fill the canal in a retrograde fashion starting at the restrictor. Cement was then pressurized into the canal with a blue tipped counter manager. The stem was then carefully introduced into the cement taking care to guide the implant into appropriate version. The stem was held in position until the cement had fully set. All extra cement was removed while the cement was hardening. The trunnion was cleansed and the final head was tapped into place to engage the Sauceda taper. The acetabulum was irrigated and visualized to be free of debris. The hip was carefully reduced. Stability was checked clinically with external rotation to 90 and there was no evidence of instability. Final fluoroscopic images were taken. The wound was then thoroughly irrigated with Irrisept. 3 L of sterile saline was irrigated through the wound using pulsatile lavage. Local anesthetic cocktail was injected into the soft tissues around the surgical field. The wound was then closed in layers. A sterile dressing was placed over the surgical incision. The drapes were taken down and the patient was carefully transferred off of the [place] table. Following removal of the boots the leg lengths felt acceptable. The patient was then taken to recovery room having tolerated the procedure well. PLAN: The patient can weight-bear as tolerated on the operative extremity. 2 doses of postoperative antibiotics. DVT prophylaxis with aspirin 81 mg twice a day based on preoperative risk stratification unless IM wants stronger anticoagulation, there are no orthopaedic contraindications. Physical therapy for gait training. Discontinue drain postoperative day #1 if output is less than 100 mL per shift.
--- NOTE | 2023-11-17 15:52 | FL ---
EXAMINATION TYPE: FL guidance operating room, XR Hip Limited LT DATE OF EXAM: 11/17/2023 Comparison: None Clinical History: 88-year-old female LEFT ANTERIOR HIP Findings: LT anterior hip with Braaksma. 25 sec fluoro time. 0.9549 Gycm2 DAP. 6 images saved. Impression: Intraoperative fluoroscopy as above.
[2023-11-17 16:42] LABS: Glucose,Whole Blood 140 mg/dL (70-110)
--- NOTE | 2023-11-17 17:06 | P.PN ---
Subjective Patient is seen for follow-up for acute kidney injury and hypernatremia. Patient has been confused. Maintained on D5W. Scheduled for surgery today. Objective - Vital Signs Vital signs: Vital Signs Temp 97 F L 11/17/23 15:37 Pulse 94 11/17/23 16:13 Resp 16 11/17/23 16:13 BP 130/73 11/17/23 16:13 Pulse Ox 94 L 11/17/23 16:13 FiO2 Intake & Output 11/16/23 11/17/23 11/17/23 18:59 06:59 18:59 Intake Total 751 Output Total 550 1400 1000 Balance -550 -1400 -249 Weight 47.627 kg Intake: IV 751 Output: Urine 550 1400 900 Estimated Blood Loss 100 Other: Voiding Method Indwelling Catheter Indwelling Catheter Indwelling Catheter # Bowel Movements 0 - Exam Patient is sleeping but arousable, comfortable, in no acute distress Patient is confused Examination of the heart S1 and S2 Examination of the lungs bilateral breath sounds are heard Abdomen is soft nontender Examination of lower extremities shows no evidence of edema. - Labs CBC & Chem 7: 11/17/23 11:20 11/17/23 11:20 Labs: Abnormal Lab Results - Last 24 Hours (Table) 11/16/23 11/17/23 11/17/23 Range/Units 20:39 06:11 11:20 RBC 3.58 L (3.80-5.40) m/uL MCV 101.6 H (80.0-100.0) fL Lymphocytes # 0.8 L (1.0-4.8) k/uL Sodium (137-145) mmol/L Chloride (98-107) mmol/L Carbon Dioxide (22-30) mmol/L BUN (7-17) mg/dL Glucose (74-99) mg/dL POC Glucose (mg/dL) 126 H 117 H (70-110) mg/dL Calcium (8.4-10.2) mg/dL 11/17/23 11/17/23 Range/Units 11:20 16:40 RBC (3.80-5.40) m/uL MCV (80.0-100.0) fL Lymphocytes # (1.0-4.8) k/uL Sodium 135 L (137-145) mmol/L Chloride 112 H (98-107) mmol/L Carbon Dioxide 21 L (22-30) mmol/L BUN 48 H (7-17) mg/dL Glucose 100 H (74-99) mg/dL POC Glucose (mg/dL) 140 H (70-110) mg/dL Calcium 8.0 L (8.4-10.2) mg/dL Assessment and Plan Assessment: 1. TOMI likely secondary to ATN, nonoliguric. Improved with IV hydration. UA showed no active sediment. 2. Hypernatremia due to dehydration and poor oral intake 3. Metabolic acidosis due to tomi 4. Fall with left femur fracture Plan: Follow-up on labs Okay to proceed with surgery from nephrology standpoint.
[2023-11-17 20:24] LABS: Glucose,Whole Blood 127 mg/dL (70-110)
[2023-11-17] MEDS: ASPIRIN 81 MG PO SCH (21:11)
[2023-11-17] MEDS: SENNOSIDES-DOCUSATE SODIUM 1 EACH TAB PO SCH (21:11)
[2023-11-18] MEDS: ACETAMINOPHEN TAB 325 MG TAB PO PRN (05:33)
[2023-11-18 06:08] LABS: Glucose,Whole Blood 135 mg/dL (70-110)
--- NOTE | 2023-11-18 07:39 | P.PN ---
Subjective Progress Note Date: 11/18/23 Patient is doing relatively well this morning. She denies significant pain in the left hip. Objective - Vital Signs Vital signs: Vital Signs Temp 98.2 F 11/18/23 04:30 Pulse 70 11/18/23 04:30 Resp 16 11/18/23 05:44 BP 129/59 11/18/23 04:30 Pulse Ox 98 11/18/23 05:44 FiO2 Intake & Output 11/17/23 11/18/23 11/18/23 18:59 06:59 18:59 Intake Total 751 Output Total 1000 700 Balance -249 -700 Weight 47.627 kg Intake: IV 751 Output: Urine 900 700 Estimated Blood Loss 100 Other: Voiding Method Indwelling Catheter Indwelling Catheter - Exam Patient is resting comfortably in bed. She is awake and able to answer que stions. On inspection of the left leg there is no intact surgical dressing over the left hip with no drainage or strike through. Her thigh is soft. She has tenderness over the knee and a moderate effusion. Femoral nerve function is intact. Distally she is able to actively plantarflex and dorsiflex her ankle and her toes. - Labs CBC & Chem 7: 11/17/23 11:20 11/17/23 11:20 Labs: Abnormal Lab Results - Last 24 Hours (Table) 11/17/23 11/17/23 11/17/23 Range/Units 11:20 11:20 16:40 RBC 3.58 L (3.80-5.40) m/uL MCV 101.6 H (80.0-100.0) fL Lymphocytes # 0.8 L (1.0-4.8) k/uL Sodium 135 L (137-145) mmol/L Chloride 112 H (98-107) mmol/L Carbon Dioxide 21 L (22-30) mmol/L BUN 48 H (7-17) mg/dL Glucose 100 H (74-99) mg/dL POC Glucose (mg/dL) 140 H (70-110) mg/dL Calcium 8.0 L (8.4-10.2) mg/dL 11/17/23 11/18/23 Range/Units 20:23 06:07 RBC (3.80-5.40) m/uL MCV (80.0-100.0) fL Lymphocytes # (1.0-4.8) k/uL Sodium (137-145) mmol/L Chloride (98-107) mmol/L Carbon Dioxide (22-30) mmol/L BUN (7-17) mg/dL Glucose (74-99) mg/dL POC Glucose (mg/dL) 127 H 135 H (70-110) mg/dL Calcium (8.4-10.2) mg/dL Assessment and Plan Assessment: Postoperative day #1 status post left hip hemiarthroplasty for displaced subcapital femoral neck fracture Left knee effusion Multiple medical problems Possible peripheral vascular disease with early gangrenous changes in the toes Plan: 1. Weightbearing as tolerated left lower extremity, mobilize up out of bed to a chair is able 2. DVT prophylaxis per primary service 3. 2 doses postoperative antibiotics and would like to discharge home on doxycycline 100 mg twice a day until her incision heals 4. Recommend vascular surgery evaluation for possible peripheral vascular dis ease due to wounds on bilateral toes 5. Leave surgical dressing in place 6. Okay to discharge from an orthopedic standpoint when medically stable
--- NOTE | 2023-11-18 10:42 | P.GSCN ---
History of Present Illness Consult date: 11/18/23 Reason for Consult: Possible peripheral vascular disease Requesting physician: Stefan Rodriguez History of present illness: This is a pleasantly confused 88-year-old female who was brought into the hospital on 11/14/2023 after being found lying on the floor. Apparently patient was found on the floor, unclear how long she was down and she is not able to give any information to her HPI, as she is confused and reports she does not remember. Cording to the emergency department notes prior to her being found on the floor her last well-known was 4 days prior, she was found lying on the floor covered in feces. Patient had CT head and cervical spine as well as hip x-ray. She was found to have a displaced left femoral neck fracture. Patient was admitted for dehydration and she was also noted to be in atrial fibrillation. She has been seen and evaluated by cardiology who determined patient was not in atrial fibrillation and cleared patient for surgery. The patient is unable to tell me if she has pain in her legs when walking prior to her fall. Denies pain in her lower extremities at this time. She is also unable to tell me if she has had any history of peripheral vascular disease. Review of Systems ROS unobtainable: due to mental status Past Medical History Past Medical History: Unable to Obtain Additional Past Medical History / Comment(s): Diverticulitis History of Any Multi-Drug Resistant Organisms: Unobtainable Past Surgical History: Unable to Obtain Past Anesthesia/Blood Transfusion Reactions: No Reported Reaction Smoking Status: Unknown if ever smoked Past Alcohol Use History: Unable to Obtain Past Drug Use History: Unable to Obtain Medications and Allergies Home Medications Medication Instructions Recorded Confirmed Type ALPRAZolam [Xanax] 0.5 mg PO BID PRN 11/14/23 11/14/23 History Levothyroxine Sodium [Synthroid] 50 mcg PO SUFRSA 11/14/23 11/14/23 History Levothyroxine Sodium [Synthroid] 100 mcg PO MOTUWETH 11/14/23 11/14/23 History HYDROcodone/APAP 5-325MG [[place] 1 - 2 tab PO Q6HR PRN #32 tab 11/18/23 Rx 5-325] Allergies Allergy/AdvReac Type Severity Reaction Status Date / Time No Known Allergies Allergy Verified 11/14/23 12:36 Surgical - Exam Vital Signs Temp Pulse Resp BP Pulse Ox 97 F L 95 20 134/81 100 11/14/23 12:16 11/14/23 12:16 11/14/23 12:16 11/14/23 12:16 11/14/23 12:16 General appearance: The patient is alert, oriented to self, appears in no acute distress. HET: Head is normocephalic and atraumatic. Pupils are equal and reactive. Neck: Supple. Heart: Regular. Lungs: Equal expansion, normal respiratory effort. Abdomen: Soft, nontender, nondistended. Extremities: Left groin with surgical dressing, clean dry and intact. Palpable femoral pulses. Nonpalpable PT or DP pulses. Able to obtain bilateral PT and DP Doppler signals. Lower extremities warm to the touch with good capillary refill. Bilateral great toes and second toes with ischemic changes, wounds. Neurological: Patient is pleasantly confused, alert and oriented to self only. Results - Labs 11/18/23 10:28 11/18/23 10:28 Abnormal Lab Results - Last 24 Hours (Table) 11/17/23 11/17/23 11/17/23 Range/Units 11:20 11:20 16:40 RBC 3.58 L (3.80-5.40) m/uL MCV 101.6 H (80.0-100.0) fL Lymphocytes # 0.8 L (1.0-4.8) k/uL Sodium 135 L (137-145) mmol/L Chloride 112 H (98-107) mmol/L Carbon Dioxide 21 L (22-30) mmol/L BUN 48 H (7-17) mg/dL Glucose 100 H (74-99) mg/dL POC Glucose (mg/dL) 140 H (70-110) mg/dL Calcium 8.0 L (8.4-10.2) mg/dL 11/17/23 11/18/23 Range/Units 20:23 06:07 RBC (3.80-5.40) m/uL MCV (80.0-100.0) fL Lymphocytes # (1.0-4.8) k/uL Sodium (137-145) mmol/L Chloride (98-107) mmol/L Carbon Dioxide (22-30) mmol/L BUN (7-17) mg/dL Glucose (74-99) mg/dL POC Glucose (mg/dL) 127 H 135 H (70-110) mg/dL Calcium (8.4-10.2) mg/dL Diabetes panel 11/17/23 Range/Units 11:20 Sodium 135 L (137-145) mmol/L Potassium 3.8 (3.5-5.1) mmol/L Chloride 112 H (98-107) mmol/L Carbon Dioxide 21 L (22-30) mmol/L BUN 48 H (7-17) mg/dL Creatinine 0.85 (0.52-1.04) mg/dL Glucose 100 H (74-99) mg/dL Calcium 8.0 L (8.4-10.2) mg/dL Calcium panel 11/17/23 Range/Units 11:20 Calcium 8.0 L (8.4-10.2) mg/dL Pituitary panel 11/17/23 Range/Units 11:20 Sodium 135 L (137-145) mmol/L Potassium 3.8 (3.5-5.1) mmol/L Chloride 112 H (98-107) mmol/L Carbon Dioxide 21 L (22-30) mmol/L BUN 48 H (7-17) mg/dL Creatinine 0.85 (0.52-1.04) mg/dL Glucose 100 H (74-99) mg/dL Calcium 8.0 L (8.4-10.2) mg/dL Adrenal panel 11/17/23 Range/Units 11:20 Sodium 135 L (137-145) mmol/L Potassium 3.8 (3.5-5.1) mmol/L Chloride 112 H (98-107) mmol/L Carbon Dioxide 21 L (22-30) mmol/L BUN 48 H (7-17) mg/dL Creatinine 0.85 (0.52-1.04) mg/dL Glucose 100 H (74-99) mg/dL Calcium 8.0 L (8.4-10.2) mg/dL - Imaging Comments: Arterial ultrasound: ABIs within normal limits. R 1.05, L 1.01 Assessment and Plan Assessment: 1. Altered mental status changes with fall at home, unclear how long patient was on the floor 2. Bilateral great toe and second toes with wounds, ischemic changes, possibly due to trauma from fall 3. Displaced left femoral neck fracture Plan: 1. Please obtain ABIs 2. Continue recommendations from orthopedics 3. Will defer medical management per primary medical team 4. Does not appear patient needs any acute vascular surgical intervention. Further recommendations forthcoming based on clinical course. Thank you for this consultation, we will continue to follow. The impression and plan of care has been dictated as directed. Dr. Garcia I performed a history and examination of this patient, discussed the same with the dictator. I agree with the dictator's note ,documented as a scribe. Any additional findings or plans will be noted.
[2023-11-18 11:26] LABS: Basophils % (A) 0 %; Eosinophils % (A) 0 %; HCT 32.7 % (34.0-46.0); HGB 10.5 gm/dL (11.4-16.0); Lymphocytes # (A) 0.5 k/uL (1.0-4.8); Lymphocytes % (A) 5 %; MCH 32.2 pg (25.0-35.0); MCHC 32.2 g/dL (31.0-37.0); MCV 100.1 fL (80.0-100.0); Monocytes # (A) 0.5 k/uL (0-1.0); Monocytes % (A) 5 %; Neutrophils # (A) 9.4 k/uL (1.3-7.7); Neutrophils % (A) 89 %; Platelet Count 184 k/uL (150-450); RBC 3.27 m/uL (3.80-5.40); RDW 13.4 % (11.5-15.5); WBC 10.6 k/uL (3.8-10.6)
[2023-11-18 11:41] LABS: African American GFR (CKD) 49 (>60 ml/min/1.73 sqM); Anion Gap 2 mmol/L; Blood Urea Nitrogen 46 mg/dL (7-17); Calcium 8.1 mg/dL (8.4-10.2); Carbon Dioxide 25 mmol/L (22-30); Chloride 111 mmol/L (98-107); Glucose 114 mg/dL (74-99); Non-African American GFR(CKD) 42 (>60 ml/min/1.73 sqM); Potassium 4.5 mmol/L (3.5-5.1); Sodium 138 mmol/L (137-145)
[2023-11-18 12:18] LABS: Glucose,Whole Blood 104 mg/dL (70-110)
--- NOTE | 2023-11-18 12:49 | US ---
EXAMINATION TYPE: US arterial LE single level DATE OF EXAM: 11/18/2023 11:54 AM CLINICAL INDICATION: Female, 88 years old with history of evaluate for PAD, toes with ischemic change s; ?AMS History of: Smoker: Yes Hypertension: No Diabetic: No Hyperlipidemia: No TIA/CVA: No Previous Vascular Surgery: No CAD: No MN: No Vascular Ulcers: Bilateral toes Claudication: Gangrene: Doppler Waveforms: Right: Variable Left: Variable Pulse Volume Recording: NA Pressure Gradients: NA Right Brachial Pressure: 95 Left Brachial Pressure: 95 Ankle-Brachial Indices: Right: 1.05 Left: 1.01 Toe Brachial Indices: Right: Unable to obtain due to patient movement Left: Unable to obtain due to patient movement IMPRESSION: Normal bilateral YOLANDA
--- NOTE | 2023-11-18 14:59 | P.PN ---
Subjective Progress Note Date: 11/15/23 88-year-old female present to the emergency department after being found on the floor. Last known well was 4 days ago. Patient states she was trying to change a light and fell. Patient does complain of left hip pain. Unclear when this happened. Patient was lying on the floor. Patient found covered with feces. Blood work completed in ED reveals a WBC of 9.7, hemoglobin of 13.7 and platelet count of 286, sodium 149, potassium 4.4, BUN/creatinine 104/2.0, UA is unremarkable, lactic acid level of 1.9, troponin of 0.023 EKG reveals no acute ST or T wave changes Chest x-ray is negative for any acute intrapulmonary process X-ray of left hip and pelvis reveals left femoral neck fracture CT of the brain is negative for any acute process CT of the spine does not reveal any fractures Objective - Vital Signs Vital signs: Vital Signs Temp 97.6 F 11/14/23 19:31 Pulse 67 11/14/23 23:21 Resp 16 11/14/23 23:21 BP 119/50 11/14/23 23:21 Pulse Ox 96 11/14/23 23:21 FiO2 Intake & Output 11/14/23 11/14/23 11/15/23 06:59 18:59 06:59 Intake Total 130 Balance 130 Weight 47.627 kg Intake: Intake, IV Titration 130 Amount Sodium Chloride 0.9% 1, 130 000 ml @ 130 mls/hr IV . Q7H42M [facility] Rx#:[id number] Other: Voiding Method Indwelling Catheter Indwelling Catheter - Exam General appearance: alert, in no apparent distress Head exam: Present: other (Abrasion) Eye exam: Present: normal appearance, PERRL, EOMI ENT exam: Present: mucous membranes dry Neck exam: Present: normal inspection. Absent: tenderness Respiratory exam: Present: normal lung sounds bilaterally Cardiovascular Exam: Present: irregular rhythm GI/Abdominal exam: Present: soft. Absent: tenderness Extremities exam: Present: tenderness (Left lateral hip. Left leg is shortened and externally rotated) Neurological exam: Present: alert, CN II-XII intact. Absent: motor sensory deficit Psychiatric exam: Present: normal affect, normal mood Skin exam: Present: abrasion (Multiple diffuse abrasions - Labs CBC & Chem 7: 11/18/23 10:28 11/18/23 10:28 Labs: Abnormal Lab Results - Last 24 Hours (Table) 11/14/23 11/14/23 11/14/23 Range/Units 12:44 12:44 12:44 MCV 102.1 H (80.0-100.0) fL MCHC (31.0-37.0) g/dL Neutrophils # 8.5 H (1.3-7.7) k/uL Lymphocytes # 0.6 L (1.0-4.8) k/uL Sodium 149 H (137-145) mmol/L Chloride 115 H (98-107) mmol/L Carbon Dioxide 16 L (22-30) mmol/L BUN 104 H* (7-17) mg/dL Creatinine 2.00 H (0.52-1.04) mg/dL Magnesium 3.0 H (1.6-2.3) mg/dL Total Bilirubin 2.5 H (0.2-1.3) mg/dL AST 61 H (14-36) U/L ALT 50 H (4-34) U/L Creatine Kinase 395 H (30-135) U/L Urine Protein Trace H (Negative) Urine Ketones Trace H (Negative) 11/14/23 Range/Units 17:24 MCV 103.6 H (80.0-100.0) fL MCHC 30.5 L (31.0-37.0) g/dL Neutrophils # 9.0 H (1.3-7.7) k/uL Lymphocytes # 0.7 L (1.0-4.8) k/uL Sodium (137-145) mmol/L Chloride (98-107) mmol/L Carbon Dioxide (22-30) mmol/L BUN (7-17) mg/dL Creatinine (0.52-1.04) mg/dL Magnesium (1.6-2.3) mg/dL Total Bilirubin (0.2-1.3) mg/dL AST (14-36) U/L ALT (4-34) U/L Creatine Kinase (30-135) U/L Urine Protein (Negative) Urine Ketones (Negative) Assessment and Plan Assessment: 1. Left hip fracture -Patient has been admitted and placed on bedrest; IV pain medication -Patient will be made n.p.o. at midnight -- Orthopedic surgery is consulted 2. Acute renal injury/dehydration; patient is placed on IV fluids in form of half-normal saline; monitor strict VALENTIN's, daily weights, renal function electrolytes; avoid nephrotoxins and hypotension 3. Transaminitis; AST and ALT are elevated at 61/50 4. Hypothyroidism; continue home dose of levothyroxine 5. New onset atrial fibrillation; patient remains rate controlled -Cardiology is consulted for further recommendations on new onset atrial fibrillation and cardiac clearance DVT prophylaxis; SCDs CODE STATUS; full code
[2023-11-18 16:48] LABS: Glucose,Whole Blood 86 mg/dL (70-110)
--- NOTE | 2023-11-18 16:50 | P.PN ---
Subjective Patient is seen for follow-up for acute kidney injury and hypernatremia. Status post D5W. Status post left hip hemiarthroplasty on 11/17/2023 No significant complaints today. Objective - Vital Signs Vital signs: Vital Signs Temp 97.6 F 11/18/23 11:48 Pulse 62 11/18/23 11:48 Resp 20 11/18/23 11:48 BP 95/47 11/18/23 11:48 Pulse Ox 97 11/18/23 11:48 FiO2 Intake & Output 11/17/23 11/18/23 11/18/23 18:59 06:59 18:59 Intake Total 751 160 Output Total 1000 700 Balance -249 -700 160 Weight 47.627 kg Intake: IV 751 Oral 160 Output: Urine 900 700 Estimated Blood Loss 100 Other: Voiding Method Indwelling Catheter Indwelling Catheter Indwelling Catheter - Exam Patient is sleeping but arousable, comfortable, in no acute distress Patient is confused Examination of the heart S1 and S2 Examination of the lungs bilateral breath sounds are heard Abdomen is soft nontender Examination of lower extremities shows no evidence of edema. - Labs CBC & Chem 7: 11/18/23 10:28 11/18/23 10:28 Labs: Abnormal Lab Results - Last 24 Hours (Table) 11/17/23 11/18/23 11/18/23 Range/Units 20:23 06:07 10:28 RBC 3.27 L (3.80-5.40) m/uL Hgb 10.5 L (11.4-16.0) gm/dL Hct 32.7 L (34.0-46.0) % MCV 100.1 H (80.0-100.0) fL Neutrophils # 9.4 H (1.3-7.7) k/uL Lymphocytes # 0.5 L (1.0-4.8) k/uL Chloride (98-107) mmol/L BUN (7-17) mg/dL Creatinine (0.52-1.04) mg/dL Glucose (74-99) mg/dL POC Glucose (mg/dL) 127 H 135 H (70-110) mg/dL Calcium (8.4-10.2) mg/dL 11/18/23 Range/Units 10:28 RBC (3.80-5.40) m/uL Hgb (11.4-16.0) gm/dL Hct (34.0-46.0) % MCV (80.0-100.0) fL Neutrophils # (1.3-7.7) k/uL Lymphocytes # (1.0-4.8) k/uL Chloride 111 H (98-107) mmol/L BUN 46 H (7-17) mg/dL Creatinine 1.17 H (0.52-1.04) mg/dL Glucose 114 H (74-99) mg/dL POC Glucose (mg/dL) (70-110) mg/dL Calcium 8.1 L (8.4-10.2) mg/dL Assessment and Plan Assessment: 1. TOMI likely secondary to ATN, nonoliguric. Improved with IV hydration. UA showed no active sediment. 2. Hypernatremia due to dehydration and poor oral intake 3. Metabolic acidosis due to tomi 4. Fall with left femur fracture Plan: Continue to encourage increase oral intake Continue off of IV fluids Repeat labs in a.m.
[2023-11-18 19:59] LABS: Glucose,Whole Blood 103 mg/dL (70-110)
--- NOTE | 2023-11-18 20:18 | XR ---
EXAMINATION TYPE: XR knee limited LT DATE OF EXAM: 11/18/2023 7:02 PM CLINICAL INDICATION:Female, 88 years old with history of pain/effusion; [facility] COMPARISON: None. TECHNIQUE: XR knee limited LT; examined in Frontal, lateral and oblique projections. FINDINGS: No evidence of any acute osseous pathology, soft tissue swelling, or joint effusion is no norma. Tricompartmental osteophyte formation involving the femoral condyles, tibial plateau and patella . Severe joint space narrowing. Sclerosis of the distal femur. IMPRESSION: 1. No acute osseous pathology. 2. Severe tricompartmental osteoarthritic changes. 2. 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
--- NOTE | 2023-11-18 22:00 | P.PN ---
Subjective Progress Note Date: 11/18/23 This is a pleasant 88-year-old female who comes to the hospital after being found with unknown downtime. Patient per EMS was unresponsive at the time of finding patient on laying on the ground. She presented to the hospital for evaluation. On admission her creatinine was found to be 2.0 with a BUN of 104 she was treated for dehydration with IV fluids and a nephrology consultation and today her BUN is down to 90 and her creatinine is 1.53 she has had adequate urine output. Nephrology has cleared the patient for surgical intervention of the left femur fracture. We will continue IV fluids overnight and repeat labs in the morning. Patient was also found to have an elevated troponin of 0.037 and was evaluated by cardiology for surgical clearance, echocardiogram was completed showing left ventricular systolic function of borderline normal with an EF of 50 to 55% patient has mild aortic stenosis with mild regurgitation and mild mitral and tricuspid regurgitation with mild pulmonary hypertension. It was question if the patient was in atrial fibrillation however after review patient appears to be in sinus mechanism with PACs and there has been no evidence of atrial fibrillation. Cardiology has evaluated the patient and found the patient to have no absolute contraindications for surgical intervention of the left femur fracture. It is evaluated today at the bedside with family. She is awake alert oriented x 2. She is complaining of minimal pain to the left hip however does report some pain to her right great toe where there appears to be an abrasion/deep tissue injury likely due to the prolonged downtime. Medically patient is considered low operative risk and cleared medically to undergo surgical repair of the left humeral fracture. 11/17/2023 Patient is evaluated today resting in bed she is more awake alert than yesterday she is currently alert x 2 she did not know where she was today. She does state that her right eye feels better it is not as close today and she will continue on the antibiotic eyedrops. Blood work comes back today within normal creatinine and a BUN of 48, sodium 135, chloride 112, CO2 21. He continues on D5 water at 100 MLS per hour he has been n.p.o. for surgery. She is scheduled to undergo left hip hemiarthroplasty today. She was downgraded to the medical floor. She will be evaluated by physical therapy postsurgical. Can continue with the indwelling catheter until more ambulatory. 11/18/2023 Patient evaluated today sitting up in bed. Patient is alert x 2, remains slightly confused. Family concerned mentation is not improving. Patient is postoperative day #1 left hip arthroplasty. Reports minimal pain to the left hip. Vascular was consulted for the necrotic appearance to the left right great and second toe. Right lower extremity doppler done with normal YOLANDA. Creatinine 1.17 today. Review of Systems Constitutional: Denied any fatigue denied any fever. Cardio vascular: denied any chest pain, palpitations Gastrointestinal: denied any nausea, vomiting, diarrhea Pulmonary: Denied any shortness of breath cough Neurologic denied any new focal deficits All inpatient medications were reviewed and appropriate changes in these medications as dictated in the interval history and assessment and plan. PHYSICAL EXAMINATION: GENERAL: The patient is alert and oriented x2, not in any acute distress. Well developed, well nourished. HEENT: Pupils are round and equally reacting to light. EOMI. No scleral icterus. No conjunctival pallor. Normocephalic, atraumatic. No pharyngeal erythema. No thyromegaly. Crusty drainage from the right eye. CARDIOVASCULAR: S1 and S2 present. No murmurs, rubs, or gallops. PULMONARY: Chest is clear to auscultation, no wheezing or crackles. ABDOMEN: Soft, nontender, nondistended, normoactive bowel sounds. No palpable organomegaly. MUSCULOSKELETAL: No joint swelling or deformity. EXTREMITIES: No cyanosis, clubbing, or pedal edema. Indwelling catheter present NEUROLOGICAL: Gross neurological examination did not reveal any focal deficits. SKIN: No rashes. Right great toe with blackened abrasion. Assessment and plan -Fall with left femur fracture postoperative day #1 left hip arthroplasty -Acute renal injury/dehydration due to ATN patient is being hydrated with nephrology consultation in place. -Transaminitis likely due to the downtime we will monitor LFTs -Hypernatremia from dehydration and poor oral intake improving with IV fluids which will be continued. -Hypothyroidism patient is continued on the same home dose of levothyroxine with a normal TSH level. -Mention Of atrial fibrillation which has been ruled out EKG reveals sinus rhythm with PACs -History of anxiety maintained on Xanax which we would recommend to wean as this can cause significant confusion in the elderly -Systolic murmur with mention of mild to moderate aortic stenosis per echocardiogram -Right eye conjunctivitis will add antibiotic eye drops for the next 7 days. -Altered mental status due to acute metabolic encephalopathy secondary to Acute kidney injury and possible component of medication affect from xanax. Improving. GI prophylaxis DVT prophylaxis Full Code The impression and plan of care has been dictated by Karla Vargas, Nurse Practitioner as directed. Dr. Brian MD I have performed a history and physical examination and medical decision making of this patient, discussed the same with the dictator, and agree with the dictators assessment and plan as written, documented as a scribe. Based on total visit time, I have performed more than 50% of this visit. - Objective - Vital Signs Vital signs: Vital Signs Temp 98.5 F 11/18/23 20:00 Pulse 66 11/18/23 20:00 Resp 18 11/18/23 20:00 BP 119/67 11/18/23 20:00 Pulse Ox 97 11/18/23 20:00 FiO2 Intake & Output 11/18/23 11/18/23 11/19/23 06:59 18:59 06:59 Intake Total 280 Output Total 700 300 Balance -700 -20 Intake: Oral 280 Output: Urine 700 300 Other: Voiding Method Indwelling Catheter Indwelling Catheter - Labs CBC & Chem 7: 11/18/23 10:28 11/18/23 10:28 Labs: Abnormal Lab Results - Last 24 Hours (Table) 11/18/23 11/18/23 11/18/23 Range/Units 06:07 10:28 10:28 RBC 3.27 L (3.80-5.40) m/uL Hgb 10.5 L (11.4-16.0) gm/dL Hct 32.7 L (34.0-46.0) % MCV 100.1 H (80.0-100.0) fL Neutrophils # 9.4 H (1.3-7.7) k/uL Lymphocytes # 0.5 L (1.0-4.8) k/uL Chloride 111 H (98-107) mmol/L BUN 46 H (7-17) mg/dL Creatinine 1.17 H (0.52-1.04) mg/dL Glucose 114 H (74-99) mg/dL POC Glucose (mg/dL) 135 H (70-110) mg/dL Calcium 8.1 L (8.4-10.2) mg/dL Assessment and Plan Time with Patient: Less than 30
[2023-11-19 06:01] LABS: Glucose,Whole Blood 83 mg/dL (70-110)
--- NOTE | 2023-11-19 11:07 | P.PN ---
Subjective Progress Note Date: 11/19/23 Principal diagnosis: Left hip fracture, toe wounds Patient was seen and examined today as a follow-up. She is sitting up in bed having breakfast. She denies any pain in her lower extremities. States she does have a little bit of left hip pain. Lower extremities are warm to the touch. ABIs are normal bilaterally. Objective - Vital Signs Vital signs: Vital Signs Temp 97.6 F 11/19/23 07:37 Pulse 75 11/19/23 07:37 Resp 20 11/19/23 07:37 BP 144/66 11/19/23 07:37 Pulse Ox 98 11/19/23 08:32 FiO2 Intake & Output 11/18/23 11/19/23 11/19/23 18:59 06:59 18:59 Intake Total 280 540 Output Total 300 850 Balance -20 -310 Intake: Oral 280 540 Output: Urine 300 850 Other: Voiding Method Indwelling Catheter Indwelling Catheter - Exam General appearance: The patient is alert, oriented, appears in no acute distress. HET: Head is normocephalic and atraumatic. Pupils are equal and reactive. Neck: Supple. Abdomen: Soft, nondistended. Extremities: Bilateral lower extremities warm to the touch, no swelling. Palpable bilateral dorsalis pedis pulse, irregular. Right great toe distal tip with ischemia, second toe with area of ischemic injury. Left great toe and distal tip with some ischemic changes. Neurological: Alert and oriented. - Labs CBC & Chem 7: 11/18/23 10:28 11/18/23 10:28 Labs: Abnormal Lab Results - Last 24 Hours (Table) 11/18/23 11/18/23 Range/Units 10:28 10:28 RBC 3.27 L (3.80-5.40) m/uL Hgb 10.5 L (11.4-16.0) gm/dL Hct 32.7 L (34.0-46.0) % MCV 100.1 H (80.0-100.0) fL Neutrophils # 9.4 H (1.3-7.7) k/uL Lymphocytes # 0.5 L (1.0-4.8) k/uL Chloride 111 H (98-107) mmol/L BUN 46 H (7-17) mg/dL Creatinine 1.17 H (0.52-1.04) mg/dL Glucose 114 H (74-99) mg/dL Calcium 8.1 L (8.4-10.2) mg/dL Assessment and Plan Assessment: 1. Altered mental status changes with fall at home, unclear how long patient was on the floor 2. Bilateral great toe and second toes with wounds, ischemic changes, likely due to trauma from fall 3. Displaced left femoral neck fracture Plan: 1. Arterial duplex of the lower extremities ordered and reviewed, normal bilaterally 2. Continue recommendations from orthopedics 3. Will defer medical management per primary medical team 4. Does not appear patient needs any vascular surgical intervention at this time. Certainly if wounds do not heal she can follow-up with vascular surgery in outpatient setting. Thank you for this consultation, we will sign off at this time. The impression and plan of care has been dictated as directed. Dr. Garcia I performed a history and examination of this patient, discussed the same with the dictator. I agree with the dictator's note ,documented as a scribe. Any additional findings or plans will be noted.
[2023-11-19 11:31] LABS: African American GFR (CKD) 61 (>60 ml/min/1.73 sqM); Anion Gap 6 mmol/L; Blood Urea Nitrogen 43 mg/dL (7-17); Calcium 8.1 mg/dL (8.4-10.2); Carbon Dioxide 22 mmol/L (22-30); Chloride 109 mmol/L (98-107); Glucose 84 mg/dL (74-99); Magnesium 2.3 mg/dL (1.6-2.3); Non-African American GFR(CKD) 53 (>60 ml/min/1.73 sqM); Sodium 137 mmol/L (137-145)
--- NOTE | 2023-11-19 12:06 | P.PN ---
Subjective Progress Note Date: 11/19/23 No acute orthopedic issues. Objective - Vital Signs Vital signs: Vital Signs Temp 97.6 F 11/19/23 07:37 Pulse 73 11/19/23 11:00 Resp 20 11/19/23 11:00 BP 133/57 11/19/23 11:00 Pulse Ox 97 11/19/23 11:00 FiO2 Intake & Output 11/18/23 11/19/23 11/19/23 18:59 06:59 18:59 Intake Total 280 540 Output Total 300 850 Balance -20 -310 Intake: Oral 280 540 Output: Urine 300 850 Other: Voiding Method Indwelling Catheter Indwelling Catheter Indwelling Catheter - Exam Sitting up at bedside chair. Dressing over anterior aspect of the hip intact with no drainage or strike through. Thigh soft. Able to actively extend the knee and plantarflex and dorsiflex the ankles and toes. - Labs CBC & Chem 7: 11/18/23 10:28 11/19/23 10:47 Labs: Abnormal Lab Results - Last 24 Hours (Table) 11/19/23 Range/Units 10:47 Chloride 109 H (98-107) mmol/L BUN 43 H (7-17) mg/dL Calcium 8.1 L (8.4-10.2) mg/dL Assessment and Plan Assessment: Postoperative day #2 status post left direct anterior hip hemiarthroplasty for displaced femoral neck fracture Multiple medical problems Plan: Continue treatment as outlined previously. Leave surgical dressing in place unless the dressing becomes saturated. Continue to encourage mobilization out of bed to chair. The patient should follow-up in 2 weeks after discharge. I will follow peripherally, please call with questions or concerns.
[2023-11-19 12:08] LABS: Glucose,Whole Blood 85 mg/dL (70-110)
--- NOTE | 2023-11-19 15:28 | P.CNNES ---
History of Present Illness Consult date: 11/19/23 Requesting physician: Karla Vargas Reason for Consult: Altered mental status History of Present Illness: Patient is a 88-year-old right-handed female came to the hospital by ambulance on 11/14/2023 at 11:48 AM for a fall with left hip fracture. Patient states that she fell inside her home and broke her hip. She states that she was laying there for 3 days. She lives by herself. Her neighbor found her. She does not remember the fall and feels she passed out. She denies any history of seizures. Patient states that for last 1 year she has been having dizzy spells off and on, occurring about once every couple weeks, lasting for about 20 minutes. Nothing brings it on. Does not occur when she rolls over in the bed. Looking down perhaps makes her dizzy she says. Patient has anxiety disorder, and she do es take Xanax 0.5 mg 1 or 1-1/2 tablet/day and believes that she is still taking it has not missed the dose. When EMS arrived, patient's home was locked from inside and patient could be heard faintly yelling from a window. She was alert but confused found lying prone on the floor inside her living room. She states that she did not fall however items are strewn on the floor. Patient was unsure if she hit her head. There was minor bruising and minor swelling around the patient's left eye. Rafael garcía complaining of left hip pain. Patient had obvious shortening of the left lower extremity. There was strong urine order on the patient. EKG showed atrial fibrillation. Patient's vitals at the scene was blood pressure 158/118, pulse rate 58, respiration 14, saturation 96%, blood sugar 127 mg/dL. On arrival her CBC shows elevated MCV 102.1. PT PTT normal. Sodium 149, BUN 104, creatinine 2.0. AST 61, ALT 50. Troponin negative. UA negative. Repeat troponin slightly +0.037. Patient's renal functions are improving with most recent BUN [address] head revealed no acute intracranial process. Nonspecific white matter changes, likely secondary to chronic small vessel isc hemic disease. On my review, there is evidence of an old lacunar stroke involving bilateral basal ganglia, with some basal ganglionic calcification. Generalized cerebral atrophy, small vessel disease CT scan of the cervical spine showed no fracture or subluxation. Mild multilevel degenerative disc disease. Chest x-ray is normal, hip x-ray revealed acute fracture of the left hip with shortening and varus deformity. 2D echo revealed left ventricular systolic function is borderline normal with EF 50 to 55%. Left ventricular cavity size is normal. Mildly increased left ventricular wall thickness. Mildly increased left atrial volume. Mild aortic stenosis with mild AR. Patient has normal AI of bilateral lower extremity. X-ray of the left knee revealed no acute osseous pathology. Severe tricompartmental osteoarthritic changes. 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 Patient has history of smoking 1 pack/day for 20 years, quit 40 years ago. No history of alcoholism. No history of strokelike symptoms. Patient states she takes a full aspirin as needed for headache, which is about once every 3 days. Review of Systems Constitutional: Denies chills, Denies fever Eyes: denies blurred vision, denies diplopia, denies pain Ears: deny: decreased hearing, ear discharge Ears, nose, mouth and throat: Reports headache, Reports sinus pressure, Reports vertigo, Denies sore throat Cardiovascular: Reports lightheadedness, Denies chest pain, Denies shortness of breath Respiratory: Denies cough, Denies excessive sputum Gastrointestinal: Denies abdominal pain, Denies diarrhea, Denies nausea, Denies vomiting Genitourinary: Denies dysuria, Denies hematuria, Denies urge incontinence, Denies urgency, Denies urinary frequency Musculoskeletal: Denies low back pain, Denies myalgias, Denies neck pain Integumentary: Denies pruritus, Denies rash Neurological: Reports as per HPI Psychiatric: Reports anxiety, Denies depression Endocrine: Reports fatigue, Denies weight change Hematologic/Lymphatic: Reports easy bruising, Denies easy bleeding Past Medical History Past Medical History: Unable to Obtain Additional Past Medical History / Comment(s): Diverticulitis History of Any Multi-Drug Resistant Organisms: Unobtainable Past Surgical History: Unable to Obtain Past Anesthesia/Blood Transfusion Reactions: No Reported Reaction Smoking Status: Unknown if ever smoked Past Alcohol Use History: Unable to Obtain Past Drug Use History: Unable to Obtain Medications and Allergies Home Medications Medication Instructions Recorded Confirmed Type ALPRAZolam [Xanax] 0.5 mg PO BID PRN 11/14/23 11/14/23 History Levothyroxine Sodium [Synthroid] 50 mcg PO SUFRSA 11/14/23 11/14/23 History Levothyroxine Sodium [Synthroid] 100 mcg PO MOTUWETH 11/14/23 11/14/23 History HYDROcodone/APAP 5-325MG [[place] 1 - 2 tab PO Q6HR PRN #32 tab 11/18/23 Rx 5-325] Allergies Allergy/AdvReac Type Severity Reaction Status Date / Time No Known Allergies Allergy Verified 11/14/23 12:36 Physical Examination - Vital Signs Vital Signs: Vital Signs Temp Pulse Resp BP BP Pulse Ox 11/19/23 08:32 98 11/19/23 07:37 97.6 F 75 20 144/66 96 11/19/23 03:46 74 18 107/54 95 11/18/23 23:08 75 18 96/55 96 11/18/23 20:00 98.5 F 66 18 119/67 97 11/18/23 17:01 71 11/18/23 16:00 98.1 F 71 18 104/44 98 11/18/23 11:48 97.6 F 62 20 95/47 97 Intake and Output 11/18/23 11/19/23 11/19/23 22:59 06:59 14:59 Intake Total 120 540 Output Total 600 550 Balance -480 -10 Intake: Oral 120 540 Output: Urine 600 550 Other: Voiding Method Indwelling Catheter Indwelling Catheter Indwelling Catheter Patient is an elderly female, very pleasant, in no acute distress. Patient is alert awake. Patient states it is the month of December and the year is 2023. She knows that she is in the hospital but does not know the name. She knows she is in [facility] and name of the current president. Speech and language functions are normal. Patient can name and repeat very well. No aphasia or dysarthria. Attention, concentration and fund of knowledge is adequate. Patient has slow mentation, slow processing time, and increased latency to answer questions. On cranial nerve examination, pupils are equal, round and reacting to light, visual santana are full on confrontation, with no neglect on double simultaneous stimulation. Extraocular muscles are intact with no nystagmus. Face is symmetric, tongue protrudes to the midline. Palatal elevation and sensation normal, hearing is moderately decreased for finger rubbing and shoulder shrug normal, facial sensation normal. On muscle strength testing, there is no pronator drift and the strength is normal in arms distally and proximally. The left lower limb was not checked because of recent surgery. Right ankle dorsiflexion is normal, he flexion 4+. Deep tendon reflexes are symmetric 1+ and plantars are withdrawal on the right, not checked on the left. Sensory to touch is equal with no neglect on double simultaneous stimulation. Cerebellar function showed mild ataxia for [id number] testing bilaterally. Did not check for ataxia in the lower limbs because of recent hip fracture and surgery. Tone and bulk of muscles normal. Gait deferred.. On general examination, patient has a systolic murmur, that extends to bilateral neck region. S1-S2 audible. Chest is clear on consultation. Abdomen is soft nontender. No organomegaly, bowel sounds present. Peripheral pulses are present. No peripheral edema. Results - Laboratory Findings CBC and BMP: 11/18/23 10:28 11/19/23 10:47 Abnormal Lab Findings: Abnormal Labs 11/14/23 11/14/23 11/14/23 12:44 12:44 12:44 RBC Hgb Hct MCV 102.1 H MCHC Neutrophils # 8.5 H Lymphocytes # 0.6 L Sodium 149 H Chloride 115 H Carbon Dioxide 16 L BUN 104 H* Creatinine 2.00 H Glucose POC Glucose (mg/dL) Calcium Magnesium 3.0 H Total Bilirubin 2.5 H AST 61 H ALT 50 H Creatine Kinase 395 H Troponin I Total Protein Albumin Urine Protein Trace H Urine Ketones Trace H 11/14/23 11/15/23 11/15/23 17:24 07:40 07:40 RBC Hgb Hct MCV 103.6 H 104.0 H MCHC 30.5 L 30.2 L Neutrophils # 9.0 H 8.2 H Lymphocytes # 0.7 L 0.7 L Sodium 152 H Chloride 122 H Carbon Dioxide 13 L BUN 117 H* Creatinine 2.39 H Glucose 68 L POC Glucose (mg/dL) Calcium Magnesium Total Bilirubin 1.6 H AST 46 H ALT 39 H Creatine Kinase Troponin I Total Protein 5.4 L Albumin 2.7 L Urine Protein Urine Ketones 11/15/23 11/15/23 11/15/23 10:15 10:30 10:31 RBC Hgb Hct MCV MCHC Neutrophils # Lymphocytes # Sodium Chloride Carbon Dioxide BUN Creatinine Glucose POC Glucose (mg/dL) 51 L 50 L 157 H Calcium Magnesium Total Bilirubin AST ALT Creatine Kinase Troponin I Total Protein Albumin Urine Protein Urine Ketones 11/15/23 11/15/23 11/15/23 11:13 11:52 16:37 RBC Hgb Hct MCV MCHC Neutrophils # Lymphocytes # Sodium Chloride Carbon Dioxide BUN Creatinine Glucose POC Glucose (mg/dL) 133 H 135 H Calcium Magnesium Total Bilirubin AST ALT Creatine Kinase Troponin I 0.037 H* Total Protein Albumin Urine Protein Urine Ketones 11/15/23 11/16/23 11/16/23 20:06 07:02 12:13 RBC Hgb Hct MCV MCHC Neutrophils # Lymphocytes # Sodium Chloride 115 H Carbon Dioxide 20 L BUN 90 H Creatinine 1.53 H Glucose 117 H POC Glucose (mg/dL) 130 H 125 H Calcium 8.0 L Magnesium Total Bilirubin AST ALT Creatine Kinase Troponin I Total Protein Albumin Urine Protein Urine Ketones 11/16/23 11/16/23 11/17/23 16:47 20:39 06:11 RBC Hgb Hct MCV MCHC Neutrophils # Lymphocytes # Sodium Chloride Carbon Dioxide BUN Creatinine Glucose POC Glucose (mg/dL) 140 H 126 H 117 H Calcium Magnesium Total Bilirubin AST ALT Creatine Kinase Troponin I Total Protein Albumin Urine Protein Urine Ketones 11/17/23 11/17/23 11/17/23 11:20 11:20 16:40 RBC 3.58 L Hgb Hct MCV 101.6 H MCHC Neutrophils # Lymphocytes # 0.8 L Sodium 135 L Chloride 112 H Carbon Dioxide 21 L BUN 48 H Creatinine Glucose 100 H POC Glucose (mg/dL) 140 H Calcium 8.0 L Magnesium Total Bilirubin AST ALT Creatine Kinase Troponin I Total Protein Albumin Urine Protein Urine Ketones 11/17/23 11/18/23 11/18/23 20:23 06:07 10:28 RBC 3.27 L Hgb 10.5 L Hct 32.7 L MCV 100.1 H MCHC Neutrophils # 9.4 H Lymphocytes # 0.5 L Sodium Chloride Carbon Dioxide BUN Creatinine Glucose POC Glucose (mg/dL) 127 H 135 H Calcium Magnesium Total Bilirubin AST ALT Creatine Kinase Troponin I Total Protein Albumin Urine Protein Urine Ketones 11/18/23 10:28 RBC Hgb Hct MCV MCHC Neutrophils # Lymphocytes # Sodium Chloride 111 H Carbon Dioxide BUN 46 H Creatinine 1.17 H Glucose 114 H POC Glucose (mg/dL) Calcium 8.1 L Magnesium Total Bilirubin AST ALT Creatine Kinase Troponin I Total Protein Albumin Urine Protein Urine Ketones Assessment and Plan Assessment: * Status post fall with left hip fracture. Patient does not remember how she fell and claims that she was there on the floor for 3 days before neighbors found her. Denies any history of seizures. * Recurrent episodes of dizziness off and on for 1 year, unclear cause. Rule out peripheral vestibular dysfunction. Rule out seizure. * Status post left hip hemiarthroplasty 11/17/2023 * Abnormal CT head, with evidence of old lacunar strokes bilateral basal ganglia * Bilateral great toe and second toes with wounds, ischemic change, likely due to trauma from fall. * Acute kidney injury, now almost resolved. * Hypernatremia, resolved * Macrocytosis, rule out B12/folate deficiency * Elevated liver enzymes Plan: * Check EEG rule out any epileptiform activity. * Carotid Doppler, rule out stenosis * 2D echo revealed left ventricular systolic function is borderline normal with EF 50 to 55%. Left ventricular cavity size is normal. Mildly increased left ventricular wall thickness. Mildly increased left atrial volume. Mild aortic stenosis with mild AR. * B12, folate, ammonia * Fasting lipid panel, hemoglobin A1c * CT head revealed evidence of old lacunar strokes. Agree with starting aspirin 81 mg daily. * Treatment of other medical conditions as per IM and other specialties. * Neurology will follow. Thank you for the consult.
[2023-11-19 16:32] LABS: Glucose,Whole Blood 86 mg/dL (70-110)
[2023-11-19 19:47] LABS: Glucose,Whole Blood 86 mg/dL (70-110)
--- NOTE | 2023-11-19 22:12 | US ---
EXAMINATION TYPE: US carotid duplex BILAT DATE OF EXAM: 11/19/2023 COMPARISON: NONE CLINICAL INDICATION: Female, 88 years old with history of Syncope; Syncope TECHNIQUE: Carotid duplex ultrasound examination. Indirect Doppler criteria was utilized. FINDINGS: EXAM MEASUREMENTS: RIGHT: Peak Systolic Velocity (PSV) cm/sec ----- Right CCA: 66.9 ----- Right ICA: 118.1 ----- Right ECA: 175.2 ICA/CCA ratio: 1.8 RIGHT: End Diastole cm/sec ----- Right CCA: 16.4 ----- Right ICA: 29.4 ----- Right ECA: 0.0 LEFT: Peak Systolic Velocity (PSV) cm/sec ----- Left CCA: 91.8 ----- Left ICA: 124.2 ----- Left ECA: 157.5 ICA/CCA ratio: 1.4 LEFT: End Diastole cm/sec ----- Left CCA: 21.9 ----- Left ICA: 28.9 ----- Left ECA: 23.5 VERTEBRALS (direction of flow): Right Vertebral: Antegrade Left Vertebral: Antegrade Rhythm: Normal RECREATION MANAGER NOTES: Heterogeneous plaque bilaterally with slightly elevated velocities within bilate ral ECA's IMPRESSION: Moderate atherosclerotic changes of the bilateral carotid bifurcations. No hemodynamically significan t internal carotid artery stenosis on either side. Criteria for Assigning % of Stenosis / Diameter reduction (Estimation based on the indirect measurements of the internal carotid artery velocities (ICA PSV). 1. Normal (no stenosis)=ICA PSV < 125 cm/s: ratio < 2.0: ICA EDV<40 cm/s. 2. Less than 50% stenosis=ICA PSV < 125 cm/s: ratio < 2.0: ICA EDV<40 cm/s. 3. 50 to 69% stenosis=ICA PSV of 125 to 230 cm/s: ration 2.0 ? 4.0: ICA EDV 40-100 cm/s. 4. Greater than 70% stenosis to near occlusion= ICA PSV > 230 cm/s: ratio > 4.0: ICA EDV > 100 cm/s. 5. Near occlusion= ICA PSV velocities may be low or undetectable: variable ratio and ICA EDV. 6. Total occlusion=unable to detect flow.
--- NOTE | 2023-11-19 22:28 | EEG ---
ELECTROENCEPHALOGRAM REPORT PREAMBLE: This is an 88-year-old female, who had a syncope, fall and fracture of the left hip. The patient is having dizzy spells. Rule out any epileptiform activity. EEG FINDINGS: This is a 21-channel digital EEG recorded with video component, utilizing 10/20 international system with referential and bipolar montages. Background consists of moderately well-developed and regulated, predominantly 8-9 hertz alpha seen in posterior head region, which is not clearly reactive to eye opening or closing. Intermittent dysrhythmic slowing in the delta range was seen in the left temporal parietal and sometimes right temporal region. Different stages of sleep were not seen. No definitive focal or generalized epileptiform activity was seen. EKG channel showed some arrhythmia. IMPRESSION: This is an abnormal EEG due to intermittent multifocal slowing involving the left temporal parietal or right temporal region, suggestive of focal cortical neuronal dysfunction. No definitive epileptiform activity was seen. If your suspicion for seizures is high, suggest prolonged, sleep-deprived EEG. MMODL / IJN: [id number] /
--- NOTE | 2023-11-19 23:30 | P.PN ---
Subjective Progress Note Date: 11/19/23 This is a pleasant 88-year-old female who comes to the hospital after being found with unknown downtime. Patient per EMS was unresponsive at the time of finding patient on laying on the ground. She presented to the hospital for evaluation. On admission her creatinine was found to be 2.0 with a BUN of 104 she was treated for dehydration with IV fluids and a nephrology consultation and today her BUN is down to 90 and her creatinine is 1.53 she has had adequate urine output. Nephrology has cleared the patient for surgical intervention of the left femur fracture. We will continue IV fluids overnight and repeat labs in the morning. Patient was also found to have an elevated troponin of 0.037 and was evaluated by cardiology for surgical clearance, echocardiogram was completed showing left ventricular systolic function of borderline normal with an EF of 50 to 55% patient has mild aortic stenosis with mild regurgitation and mild mitral and tricuspid regurgitation with mild pulmonary hypertension. It was question if the patient was in atrial fibrillation however after review patient appears to be in sinus mechanism with PACs and there has been no evidence of atrial fibrillation. Cardiology has evaluated the patient and found the patient to have no absolute contraindications for surgical intervention of the left femur fracture. It is evaluated today at the bedside with family. She is awake alert oriented x 2. She is complaining of minimal pain to the left hip however does report some pain to her right great toe where there appears to be an abrasion/deep tissue injury likely due to the prolonged downtime. Medically patient is considered low operative risk and cleared medically to undergo surgical repair of the left humeral fracture. 11/17/2023 Patient is evaluated today resting in bed she is more awake alert than yesterday she is currently alert x 2 she did not know where she was today. She does state that her right eye feels better it is not as close today and she will continue on the antibiotic eyedrops. Blood work comes back today within normal creatinine and a BUN of 48, sodium 135, chloride 112, CO2 21. He continues on D5 water at 100 MLS per hour he has been n.p.o. for surgery. She is scheduled to undergo left hip hemiarthroplasty today. She was downgraded to the medical floor. She will be evaluated by physical therapy postsurgical. Can continue with the indwelling catheter until more ambulatory. 11/18/2023 Patient evaluated today sitting up in bed. Patient is alert x 2, remains slightly confused. Family concerned mentation is not improving. Patient is postoperative day #1 left hip arthroplasty. Reports minimal pain to the left hip. Vascular was consulted for the necrotic appearance to the left right great and second toe. Right lower extremity doppler done with normal YOLANDA. Creatinine 1.17 today. 11/19/2023 Patient is evaluated today sitting up in bed. Working with physical therapy. Patient is alert x 2 remains slightly confused. Postoperative day #2 normalleft hip arthroplasty. P.atient not reporting pain to the left hip. Dressing intact with minimal bruising. Renal function stable. Review of Systems Constitutional: Denied any fatigue denied any fever. Cardio vascular: denied any chest pain, palpitations Gastrointestinal: denied any nausea, vomiting, diarrhea Pulmonary: Denied any shortness of breath cough Neurologic denied any new focal deficits All inpatient medications were reviewed and appropriate changes in these med ications as dictated in the interval history and assessment and plan. PHYSICAL EXAMINATION: GENERAL: The patient is alert and oriented x2, not in any acute distress. Well developed, well nourished. HEENT: Pupils are round and equally reacting to light. EOMI. No scleral icterus. No conjunctival pallor. Normocephalic, atraumatic. No pharyngeal erythema. No thyromegaly. Crusty drainage from the right eye. CARDIOVASCULAR: S1 and S2 present. No murmurs, rubs, or gallops. PULMONARY: Chest is clear to auscultation, no wheezing or crackles. ABDOMEN: Soft, nontender, nondistended, normoactive bowel sounds. No palpable organomegaly. MUSCULOSKELETAL: No joint swelling or deformity. EXTREMITIES: No cyanosis, clubbing, or pedal edema. Indwelling catheter present NEUROLOGICAL: Gross neurological examination did not reveal any focal deficits. SKIN: No rashes. Right great toe with blackened abrasion. Assessment and plan -Fall with left femur fracture postoperative day #2 left hip arthroplasty -Acute renal injury/dehydration due to ATN patient is being hydrated with nephrology consultation in place. Creatinine improved. -Right great toe and 2nd toe wound with eschar, non healing pressure injury. Wound care consultation no dressings recommended as wound is closed and healing. If wound opens recommending honey dressing. -Transaminitis likely due to the downtime we will monitor LFTs -Hypernatremia from dehydration and poor oral intake improving with IV fluids which will be continued. -Hypothyroidism patient is continued on the same home dose of levothyroxine with a normal TSH level. -Mention Of atrial fibrillation which has been ruled out EKG reveals sinus rhythm with PACs -History of anxiety maintained on Xanax which we would recommend to wean as this can cause significant confusion in the elderly -Systolic murmur with mention of mild to moderate aortic stenosis per echo cardiogram -Right eye conjunctivitis will add antibiotic eye drops for the next 7 days. -Altered mental status due to acute metabolic encephalopathy secondary to Acute kidney injury and possible component of medication affect from xanax. Improving. Neurology consulted. GI prophylaxis DVT prophylaxis Full Code The impression and plan of care has been dictated by Karla Vargas, Nurse Practitioner as directed. Dr. Brian MD I have performed a history and physical examination and medical decision making of this patient, discussed the same with the dictator, and agree with the dictators assessment and plan as written, documented as a scribe. Based on total visit time, I have performed more than 50% of this visit. - Objective - Vital Signs Vital signs: Vital Signs Temp 99.1 F 11/19/23 19:25 Pulse 92 11/19/23 19:39 Resp 16 11/19/23 19:39 BP 139/56 11/19/23 19:25 Pulse Ox 95 11/19/23 19:25 FiO2 Intake & Output 11/19/23 11/19/23 11/20/23 06:59 18:59 06:59 Intake Total 540 Output Total 850 1125 Balance -310 -1125 Intake: Oral 540 Output: Urine 850 1125 Other: Voiding Method Indwelling Catheter Indwelling Catheter Indwelling Catheter - Labs CBC & Chem 7: 11/18/23 10:28 11/19/23 10:47 Labs: Abnormal Lab Results - Last 24 Hours (Table) 11/19/23 11/19/23 Range/Units 10:47 10:47 Chloride 109 H (98-107) mmol/L BUN 43 H (7-17) mg/dL Calcium 8.1 L (8.4-10.2) mg/dL Folate 3.70 L (4.40-31.00) ng/mL Assessment and Plan Time with Patient: Less than 30
[2023-11-20] VITALS: RESP 18
[2023-11-20 06:10] LABS: Glucose,Whole Blood 74 mg/dL (70-110)
[2023-11-20 11:02] VITALS: BMI 20.5
[2023-11-20 11:45] LABS: Glucose,Whole Blood 70 mg/dL (70-110)
[2023-11-20 12:36] LABS: Glucose,Whole Blood 88 mg/dL (70-110)
[2023-11-20 12:42] LABS: Basophils % (A) 0 %; Eosinophils # (A) 0.1 k/uL (0-0.7); Eosinophils % (A) 1 %; HCT 38.1 % (34.0-46.0); HGB 11.9 gm/dL (11.4-16.0); Hypochromasia Slight; Lymphocytes % (A) 12 %; MCH 31.6 pg (25.0-35.0); MCHC 31.1 g/dL (31.0-37.0); MCV 101.6 fL (80.0-100.0); Macrocytosis Slight; Mean Platelet Volume 8.7; Monocytes # (A) 0.4 k/uL (0-1.0); Monocytes % (A) 5 %; Neutrophils # (A) 6.5 k/uL (1.3-7.7); Neutrophils % (A) 81 %; Platelet Count 236 k/uL (150-450); RBC 3.75 m/uL (3.80-5.40)
--- NOTE | 2023-11-20 14:57 | P.DS ---
Providers Date of admission: 11/14/23 15:05 Attending physician: Brody Hobbs MD Consults: 11/14/23 14:58 Consult Physician Urgent Consulting Provider: Stefan Rodriguez Consult Reason/Comments: hip fx Do you want consulting provider notified?: Already Contacted 11/15/23 09:40 Consult Physician Routine Consulting Provider: Ziggy Warren Consult Reason/Comments: boo Do you want consulting provider notified?: Yes 11/17/23 15:49 Consult Physician Routine Consulting Provider: Karo Garcia Consult Reason/Comments: possible peripheral vascular disease, gangrenous toes Do you want consulting provider notified?: Yes 11/18/23 13:11 Consult Physician Routine Consulting Provider: Darian Stover Consult Reason/Comments: Altered mental status Do you want consulting provider notified?: Yes Primary care physician: Stated None Hospital Course: Final Diagnosis -Fall with left femur fracture postoperative day #3 left hip arthroplasty -Acute renal injury/dehydration due to ATN -Right great toe and 2nd toe wound with eschar, non healing pressure injury. Wound care consultation no dressings recommended as wound is closed and healing. If wound opens recommending honey dressing. -Transaminitis likely due to the downtime -Hypernatremia from dehydration and poor oral intake -Hypothyroidism -Mention Of atrial fibrillation which has been ruled out EKG reveals sinus rhythm with PACs -History of anxiety maintained on Xanax which we would recommend to wean -Systolic murmur with mention of mild to moderate aortic stenosis per echocardiogram -Right eye conjunctivitis -Altered mental status due to acute metabolic encephalopathy secondary to Acute kidney injury and possible component of medication affect from xanax Discharge Disposition Patient stable for discharge to subacute rehab. She is then recommended to continue on aspirin 81 mg twice a day for the next 30 days by orthopedics patient will continue this for 28 more days as she has already been started on this on the hospital. Once the 28 days is up patient is recommended to continue on aspirin 81 mg daily indefinitely. She was seen by neurology for her altered mental status. Her mentation is significantly improved. Antibiotic eyedrops to continue for the next 2 days for her right eye conjunctivitis to complete a total of 7 days of antibiotic therapy. Patient needs to follow-up with orthopedics in the office as well as [facility] wound care and center, neurology and her primary care provider. The right great toe and second toe wound had been healing they are currently closed however if the wound opens renee mmendations have made for honey dressing. And [facility] care center on follow-up. Hospital Course This is a pleasant 88-year-old female who comes to the hospital after being found with unknown downtime. Patient per EMS was unresponsive at the time of finding patient on laying on the ground. She presented to the hospital for evaluation. On admission her creatinine was found to be 2.0 with a BUN of 104 she was treated for dehydration with IV fluids and a nephrology consultation and today her BUN is down to 90 and her creatinine is 1.53 she has had adequate urine output. Patient was also found to have an elevated troponin of 0.037 and was evaluated by cardiology for surgical clearance, echocardiogram was completed showing left ventricular systolic function of borderline normal with an EF of 50 to 55% patient has mild aortic stenosis with mild regurgitation and mild mitral and tricuspid regurgitation with mild pulmonary hypertension. It was question if the patient was in atrial fibrillation however after review patient appears to be in sinus mechanism with PACs and there has been no evidence of atrial fibrillation. She is complaining of minimal pain to the left hip however does report some pain to her right great toe where there appears to be an abrasion/deep tissue injury likely due to the prolonged downtime. Patient underwent left hip arthroplasty today she is postoperative day #3. Dressing is intact. She is complaining minimal pain to the left hip and has been up ambulating with physical therapy. She was hydrated and her creatinine has improved and is now normalized. She has had confusion this admission she had a brain CT that was negative for any acute findings, echocardiogram as mentioned her mentation improved to about a 2-3 with moments of confusion according to family this is still a change from baseline. Neurology was consulted for evaluation a carotid Doppler was completed showed moderate bilateral atherosclerotic disease with no significant stenosis. EEG was abnormal but does not show any epileptiform or seizure-like activity. Her vitamin B level 288, folate level was 3.70, ammonia level was less than 9. We would recommend a Folic Acid supplement on discharge. She has no chest pain or shortness of breath. Pending neurology clearance patient can be discharged to subacute rehab today. Please see medication reconciliation for a list of current medications. Thank you for allowing us to participate in the care of this patient. The impression and plan of care has been dictated by Karla Vargas Nurse Practitioner as directed. Dr. Brian MD I have performed a history and physical examination and medical decision making of this patient, discussed the same with the dictator, and agree with the dictators assessment and plan as written, documented as a scribe. Based on total visit time, I have performed more than 50% of this visit. Patient Condition at Discharge: Fair Plan - Discharge Summary Discharge Rx Participant: No New Discharge Prescriptions: New Aspirin 81 mg PO BID #60 tab Sennosides-Docusate Sodium [Senokot-S] 2 each PO HS tab Levothyroxine Sodium [Synthroid] 50 mcg PO SuFrSa@0700 tab Famotidine [Pepcid] 20 mg PO DAILY #30 tablet HYDROcodone/APAP 5-325MG [[place] 5-325] 1 - 2 tab PO Q6HR PRN #32 tab PRN Reason: Pain Ciprofloxacin Ophth Soln [Ciloxan 0.3% Ophth Soln] 1 drops RIGHT EYE Q4HR 2 Days ml Heparin Sodium,Porcine (1 ml) [Heparin Sodium] 5,000 unit SQ Q12HR each Levothyroxine Sodium [Synthroid] 100 mcg PO MoTuWeTh@0700 tab Acetaminophen Tab [Tylenol] 650 mg PO Q6HR PRN tab PRN Reason: Mild Pain Or Fever > 100.5 Discontinued Levothyroxine Sodium [Synthroid] 50 mcg PO SUFRSA Levothyroxine Sodium [Synthroid] 100 mcg PO MOTUWETH ALPRAZolam [Xanax] 0.5 mg PO BID PRN PRN Reason: Anxiety Discharge Medication List HYDROcodone/APAP 5-325MG [[place] 5-325] 1 - 2 tab PO Q6HR PRN #32 tab 11/18/23 [Rx] Acetaminophen Tab [Tylenol] 650 mg PO Q6HR PRN tab 11/20/23 [Rx] Aspirin 81 mg PO BID #60 tab 11/20/23 [Rx] Ciprofloxacin Ophth Soln [Ciloxan 0.3% Ophth Soln] 1 drops RIGHT EYE Q4HR 2 Days ml 11/20/23 [Rx] Famotidine [Pepcid] 20 mg PO DAILY #30 tablet 11/20/23 [Rx] Heparin Sodium,Porcine (1 ml) [Heparin Sodium] 5,000 unit SQ Q12HR each 11/20/23 [Rx] Levothyroxine Sodium [Synthroid] 50 mcg PO SuFrSa@0700 tab 11/20/23 [Rx] Levothyroxine Sodium [Synthroid] 100 mcg PO MoTuWeTh@0700 tab 11/20/23 [Rx] Sennosides-Docusate Sodium [Senokot-S] 2 each PO HS tab 11/20/23 [Rx] Follow up Appointment(s)/Referral(s): Kirstie Olmos MD [STAFF PHYSICIAN] - 1 Week Angelo Lomax MD [REFERRING] - 1 Week Jj Ricardo MD [STAFF PHYSICIAN] - 1-2 Days None,Stated [Primary Care Provider] - 1-2 days [facility] [NON-STAFF] - 1 Week Stefan Rodriguez MD [Medical Doctor] - 2 Weeks Ambulatory/Diagnostic Orders: Basic Metabolic Panel [LAB.AMB] Time Frame: 3 Days, Location: None Selected Activity/Diet/Wound Care/Special Instructions: ORTHOPAEDIC DISCHARGE INSTRUCTIONS (see internal medicine discharge instructions for medical care instructions following discharge): 1. Weight-bear as tolerated on your operative extremity unless instructed otherwise. Use a walker or other assistive device to ambulate. 2. Leave surgical dressing in place. If your dressing becomes saturated with blood, there is drainage, or the dressing becomes loose please contact the office. 3. It is okay to shower with your surgical dressing, but do not submerge in water (no hot tubs, bath's, swimming etc.) 4. Make sure to take her blood clot prevention medication as prescribed (aspirin, Eliquis, Xarelto, and Plavix are commonly prescribed medications for blood clot prevention) 5. While taking [place] or Percocet for pain make sure you're taking a stool softener (Colace) and drink lots of water. 6. Keep all follow-up appointments as scheduled. You will usually be seen in 1-2 weeks following surgery. 7. Please contact the office with any questions or concerns [phone] Continue aspirin 81 mg twice day for 28 days than transition to aspirin 81 mg daily. Continue cipro eye gtts for 2 more days to complete 7 days of antibiotics for right sided conjunctivitis. For the Nonhealing ulcer patient other part of right foot limited to skin breakdown; at this time no dressings are required. If the ulcerations opened up with drainage apply honey gel to the site. Follow up with [facility] wound care center. Discharge Disposition: TRANSFER TO SNF/ECF
[2023-11-20] MEDS: FOLIC ACID 1 MG TAB PO SCH (15:14)
[2023-11-20] MEDS: CYANOCOBALAMIN 1,000 MCG/ML 1 ML VIAL IM ONE (15:14)
[2023-11-20 15:45] LABS: Chol/HDL Ratio 6.23 Ratio; LDL Cholesterol,Calculated 97.7 mg/dL (0.0-131.0)
[2023-11-20 16:13] VITALS: BP 147/72; PULSE 68; TEMP 97.9
[2023-11-20 16:41] LABS: Glucose,Whole Blood 108 mg/dL (70-110)
--- NOTE | 2023-11-20 20:15 | P.PN ---
Subjective Progress Note Date: 11/20/23 Patient was seen for a follow-up. Patient states that she feels depressed. Offers no new complaints. Otherwise laying comfortably in the bed. Objective - Vital Signs Vital signs: Vital Signs Temp 98.4 F 11/20/23 08:00 Pulse 74 11/20/23 08:00 Resp 18 11/20/23 08:00 BP 128/68 11/20/23 08:00 Pulse Ox 97 11/20/23 08:52 FiO2 Intake & Output 11/19/23 11/20/23 11/20/23 18:59 06:59 18:59 Output Total 1125 800 Balance -1125 -800 Weight 47.627 kg Output: Urine 1125 800 Other: Voiding Method Indwelling Catheter Indwelling Catheter Indwelling Catheter - Exam Examination unchanged. Detailed examination deferred. - Labs CBC & Chem 7: 11/20/23 12:18 11/19/23 10:47 Labs: Abnormal Lab Results - Last 24 Hours (Table) 11/19/23 11/20/23 Range/Units 10:47 12:18 RBC 3.75 L (3.80-5.40) m/uL MCV 101.6 H (80.0-100.0) fL Folate 3.70 L (4.40-31.00) ng/mL Assessment and Plan Assessment: * Status post fall with left hip fracture. Patient does not remember how she fell and claims that she was there on the floor for 3 days before neighbors found her. Denies any history of seizures. * Recurrent episodes of dizziness off and on for 1 year, unclear cause. Rule out peripheral vestibular dysfunction. Rule out seizure. * Status post left hip hemiarthroplasty 11/17/2023 * Abnormal CT head, with evidence of old lacunar strokes bilateral basal ganglia * Bilateral great toe and second toes with wounds, ischemic change, likely due to trauma from fall. * Acute kidney injury, now almost resolved. * Hypernatremia, resolved * Macrocytosis, rule out B12/folate deficiency * Elevated liver enzymes Plan: * EEG was abnormal due to intermittent multifocal slowing involving the left temporal parietal or right temporal region, suggestive of focal cortical neuronal dysfunction. No definitive epileptiform activity was seen. If your suspicion for seizures is high, suggest prolonged, sleep deprived EEG. * Carotid Doppler revealed moderate atherosclerotic changes of the bilateral carotid bifurcations. No hemodynamically significant ICA stenosis on either side. Antegrade flow in both vertebral arteries. * 2D echo revealed left ventricular systolic function is borderline normal with EF 50 to 55%. Left ventricular cavity size is normal. Mildly increased left ventricular wall thickness. Mildly increased left atrial volume. Mild aortic stenosis with mild AR. * B12 288, folate 3.7, ammonia <9 * Patient has B12 and folate deficiency. Patient was given vitamin B12 injecti on 1000 mcg IM x 1 dose. She will be maintained on vitamin B12 1000 mcg orally daily and folic acid 1 mg daily. * Fasting lipid panel with cholesterol 154, LDL 97, HDL 24, triglycerides 158 * Hemoglobin A1c 5.4 * CT head revealed evidence of old lacunar strokes. Agree with starting aspirin 81 mg daily. * Treatment of other medical conditions as per IM and other specialties. * Neurologically clear for discharge.
[2023-11-21] MEDS ORDERED: CYANOCOBALAMIN 500 MCG TAB PO SCH (09:00)
== END 2023-11-20 17:34 | DRG 521 ==
LOC: EC 11:48 → 5NMEDONC 15:05 → 4SSUR 15:24 → 3SCARD 17:01
PROVIDERS: ADMIT Internal Medicine; ATTEND Internal Medicine
PROC: 0SRS0J9 Replacement of Left Hip Joint, Femoral Surface with Synthetic Substitute, Cemented, Open Approach (ICD-10-PCS; principal; 2023-11-17 16:00)
DX: S72.012A Unspecified intracapsular fracture of left femur, initial encounter for closed fracture (principal); G93.41 Metabolic encephalopathy; N17.0 Acute kidney failure with tubular necrosis; E87.0 Hyperosmolality and hypernatremia; E03.9 Hypothyroidism, unspecified; E11.621 Type 2 diabetes mellitus with foot ulcer; E86.0 Dehydration; M17.12 Unilateral primary osteoarthritis, left knee; I48.91 Unspecified atrial fibrillation; I35.0 Nonrheumatic aortic (valve) stenosis; L89.899 Pressure ulcer of other site, unspecified stage; E87.8 Other disorders of electrolyte and fluid balance, not elsewhere classified; H10.9 Unspecified conjunctivitis; W18.30XA Fall on same level, unspecified, initial encounter; F41.9 Anxiety disorder, unspecified; I27.20 Pulmonary hypertension, unspecified; Z79.899 Other long term (current) drug therapy; Z79.890 Hormone replacement therapy; Y92.009 Unspecified place in unspecified non-institutional (private) residence as the place of occurrence of the external cause; Z86.73 Personal history of transient ischemic attack (TIA), and cerebral infarction without residual deficits
CPT/HCPCS: 36415; 51702; 70450; 71045; 72125; 73501; 73502; 80048; 80053; 80061; 81003; 82140; 82550; 82607; 82746; 83036; 83605; 83735; 84443; 84484; 85025; 85610; 85730; 86850; 86900; 86901; 93005; 93306; 93880; 93922; 94760; 95816; 96360; 96361; 99285

== ENCOUNTER 2023-11-24 04:04 | Emergency (ER) | payer MEDICARE ==
--- NOTE | 2023-11-24 04:36 | CT ---
EXAMINATION TYPE: CT brain cspine wo con DATE OF EXAM: 11/24/2023 COMPARISON: Prior trauma CT November 14, 2023 HISTORY: fall out of bed, unknown LOC, + thinners, neck pain CT DLP: 1322.4 mGycm. Automated Exposure Control for Dose Reduction was Utilized. TECHNIQUE: CT scan of the head and cervical spine are performed without contrast. FINDINGS: There is no acute intracranial hemorrhage or midline shift identified. Mild to moderate v entricular and sulcal prominence redemonstrated. Moderate to severe low-attenuation in the deep and p eriventricular white matter redemonstrated. Calvarium is intact. The globes are intact and the visual ized sinuses are clear. Cervical spine is visualized in its entirety from C1 through upper thoracic levels and redemonstrated slight grade 1 anterolisthesis C3 on C4 without evidence of acute fracture or dislocation. Preverte bral soft tissue appears within normal limits. The C1-C2 articulation is within normal limits on the coronal images. Osseous structures are demineralized. Levoconvex scoliosis centered in the upper th oracic spine is redemonstrated. Vertebral body heights are preserved. Moderate disc space narrowing C 3-C4 through C5-C6 levels is redemonstrated. Axial images redemonstrate multilevel uncovertebral face t degenerative changes bilaterally causing multilevel bilateral neural foraminal narrowing. Thyroid g land is not well seen and may be surgically absent. Lung apices are clear without pneumothorax. IMPRESSION: 1. There is no acute fracture or dislocation evident in the cervical spine. 2. No acute intracranial hemorrhage or midline shift is seen. No significant change from prior CT.
--- NOTE | 2023-11-24 04:48 | ED ---
General Adult HPI - General Chief complaint: Fall Stated complaint: Fall Time Seen by Provider: 11/24/23 04:06 Source: EMS, RN notes reviewed, old records reviewed Mode of arrival: EMS - History of Present Illness Initial comments: 88-year-old female presents from the care home with suspected fall from bed. This was unwitnessed. Patient is currently on aspirin and heparin. She had noted abrasion to the left forehead. Uncertain loss of consciousness. Patient has no complaints, placed in a c-collar by paramedics. No other injury reported. - Related Data Previous Rx's Medication Instructions Recorded HYDROcodone/APAP 5-325MG [[place] 1 - 2 tab PO Q6HR PRN #32 tab 11/18/23 5-325] Acetaminophen Tab [Tylenol] 650 mg PO Q6HR PRN tab 11/20/23 Aspirin 81 mg PO BID #60 tab 11/20/23 Ciprofloxacin Ophth Soln [Ciloxan 1 drops RIGHT EYE Q4HR 2 Days ml 11/20/23 0.3% Ophth Soln] Cyanocobalamin (Vitamin B-12) 1,000 mcg PO DAILY #30 tab 11/20/23 [Vitamin B-12] Famotidine [Pepcid] 20 mg PO DAILY #30 tablet 11/20/23 Folic Acid 1 mg PO DAILY #30 tablet 11/20/23 Heparin Sodium,Porcine (1 ml) 5,000 unit SQ Q12HR each 11/20/23 [Heparin Sodium] Levothyroxine Sodium [Synthroid] 50 mcg PO SuFrSa@0700 tab 11/20/23 Levothyroxine Sodium [Synthroid] 100 mcg PO MoTuWeTh@0700 tab 11/20/23 Sennosides-Docusate Sodium 2 each PO HS tab 11/20/23 [Senokot-S] Allergies Allergy/AdvReac Type Severity Reaction Status Date / Time No Known Allergies Allergy Verified 11/24/23 04:30 Review of Systems ROS Statement: Those systems with pertinent positive or pertinent negative responses have been documented in the HPI. ROS Other: All systems not noted in ROS Statement are negative. Past Medical History Past Medical History: Unable to Obtain Additional Past Medical History / Comment(s): Diverticulitis History of Any Multi-Drug Resistant Organisms: Unobtainable Past Surgical History: Unable to Obtain Past Anesthesia/Blood Transfusion Reactions: No Reported Reaction Past Psychological History: Anxiety Smoking Status: Unknown if ever smoked Past Alcohol Use History: Unable to Obtain Past Drug Use History: Unable to Obtain General Exam General appearance: alert, in no apparent distress Head exam: Present: normocephalic, other (Hematoma and abrasion left forehead) Eye exam: Present: normal appearance, PERRL Neck exam: Present: normal inspection. Absent: tenderness, meningismus Respiratory exam: Present: normal lung sounds bilaterally. Absent: respiratory distress, wheezes Cardiovascular Exam: Present: regular rate, irregular rhythm GI/Abdominal exam: Present: soft. Absent: distended, tenderness, guarding Extremities exam: Present: normal inspection, normal capillary refill Neurological exam: Present: alert, CN II-XII intact. Absent: oriented X3, motor sensory deficit Psychiatric exam: Present: normal affect, normal mood Skin exam: Present: warm, dry, intact Course Vital Signs 11/24/23 11/24/23 04:09 04:32 Temperature 97.4 F L Pulse Rate 85 Respiratory 16 Rate Blood Pressure 132/52 O2 Sat by Pulse 87 L 97 Oximetry Medical Decision Making - Medical Decision Making Was pt. sent in by a medical professional or institution (, PA, CLOSING SPECIALIST, urgent care, hospital, or care home...) When possible be specific @ -No Did you speak to anyone other than the patient for history (EMS, parent, family, police, friend...)? What history was obtained from this source @ -No Did you review nursing and triage notes (agree or disagree)? Why? @ -I reviewed and agree with nursing and triage notes Were old charts reviewed (outside hosp., previous admission, EMS record, old EKG, old radiological studies, urgent care reports/EKG's, care home records)? Report findings @ -No old charts were reviewed Differential Diagnosis (chest pain, altered mental status, abdominal pain women, abdominal pain men, vaginal bleeding, weakness, fever, dyspnea, syncope, headache, dizziness, GI bleed, back pain, seizure, CVA, palpatations, mental health, musculoskeletal)? @ -Intracranial hemorrhage, concussion, cervical fracture or subluxation EKG interpreted by me (3pts min.). @ -As above X-rays interpreted by me (1pt min.). @ -None done CT interpreted by me (1pt min.). @ -[CT brain negative for intracranial hemorrhage or mass effect, CT cervical spine negative for fracture or subluxation. U/S interpreted by me (1pt. min.). @ -None done What testing was considered but not performed or refused? (CT, X-rays, U/S, labs)? Why? @ -None What meds were considered but not given or refused? Why? @ -None Did you discuss the management of the patient with other professionals (professionals i.e. DrTawanda, PA, CLOSING SPECIALIST, lab, RT, psych nurse, social media community manager, powder coat painter, teacher, military source operations officer, machine adjuster leader case trim)? Give summary @ -No Was smoking cessation discussed for >3mins.? @ -No Was critical care preformed (if so, how long)? @ -No Were there social determinants of health that impacted care today? How? (Homelessness, low income, unemployed, alcoholism, drug addiction, transportation, low edu. Level, literacy, decrease access to med. care, retirement, rehab)? @ -No Was there de-escalation of care discussed even if they declined (Discuss DNR or withdrawal of care, Hospice)? DNR status @ -No What co-morbidities impacted this encounter? (DM, HTN, Smoking, COPD, CAD, Cancer, CVA, ARF, Chemo, Hep., AIDS, mental health diagnosis, sleep apnea, morbid obesity)? @ -None Was patient admitted / discharged? Hospital course, mention meds given and route, prescriptions, significant lab abnormalities, going to OR and other pertinent info. @ -88-year-old female with fall from bed, minor head injury patient is on aspirin and heparin and has left frontal hematoma. Head CT is negative for intracranial hemorrhage or mass effect. Cervical spine negative for fracture or subluxation. Patient is at baseline according to paramedics mildly confused. No other complaints. Stable for discharge back to care home. Undiagnosed new problem with uncertain prognosis? @ -No Drug Therapy requiring intensive monitoring for toxicity (Heparin, Nitro, Insulin, Cardizem)? @ -No Were any procedures done? @ -No Diagnosis/symptom? @ -Concussion Acute, or Chronic, or Acute on Chronic? @ -Acute Uncomplicated (without systemic symptoms) or Complicated (systemic symptoms)? @ -Default Side effects of treatment? @ -No Exacerbation, Progression, or Severe Exacerbation? @ -No Poses a threat to life or bodily function? How? (Chest pain, [place], [place], pneumonia, PE, COPD, DKA, ARF, appy, cholecystitis, CVA, Diverticulitis, Homicidal, Suicidal, threat to staff... and all critical care pts) @ -Low risk at this time] Disposition Clinical Impression: Fall, Concussion Disposition: HOME SELF-CARE Condition: Fair Instructions (If sedation given, give patient instructions): Fall Prevention for Older Adults (ED), Concussion (ED) Is patient prescribed a controlled substance at d/c from ED?: No Referrals: None,Stated [Primary Care Provider] - 1-2 days Time of Disposition: 04:48
[2023-11-24 04:59] VITALS: TEMP 97.4
[2023-11-24 05:28] VITALS: BP 144/61; PULSE 90; RESP 18
== END 2023-11-24 06:18 | disposition home or self-care (01) ==
LOC: EC 04:04
DX: S06.0X0A Concussion without loss of consciousness, initial encounter (principal); R40.2410 Glasgow coma scale score 13-15, unspecified time; Z86.59 Personal history of other mental and behavioral disorders; W06.XXXA Fall from bed, initial encounter
CPT/HCPCS: 70450; 72125; 99284

== ENCOUNTER 2024-01-05 03:39 | Emergency (ER) | payer MEDICARE ==
[2024-01-05 03:52] VITALS: TEMP 97.5
[2024-01-05 04:31] LABS: Anisocytosis Slight; Basophils % (A) 1 %; Eosinophils # (A) 0.1 k/uL (0-0.7); Eosinophils % (A) 1 %; HCT 36.1 % (34.0-46.0); HGB 10.5 gm/dL (11.4-16.0); Hypochromasia Marked; Lymphocytes # (A) 1.5 k/uL (1.0-4.8); Lymphocytes % (A) 22 %; MCH 29.9 pg (25.0-35.0); MCHC 29.2 g/dL (31.0-37.0); MCV 102.4 fL (80.0-100.0); Macrocytosis Moderate; Mean Platelet Volume 8.5; Monocytes # (A) 0.5 k/uL (0-1.0); Monocytes % (A) 7 %; Neutrophils # (A) 4.5 k/uL (1.3-7.7); Neutrophils % (A) 67 %; Platelet Count 334 k/uL (150-450); RBC 3.53 m/uL (3.80-5.40); RDW 16.5 % (11.5-15.5); WBC 6.7 k/uL (3.8-10.6)
[2024-01-05 04:50] LABS: ALT 14 U/L (4-34); AST 25 U/L (14-36); African American GFR (CKD) >90 (>60 ml/min/1.73 sqM); Albumin 2.7 g/dL (3.5-5.0); Alkaline Phosphatase 96 U/L (38-126); Anion Gap 6 mmol/L; Blood Urea Nitrogen 25 mg/dL (7-17); Calcium 8.6 mg/dL (8.4-10.2); Carbon Dioxide 32 mmol/L (22-30); Chloride 108 mmol/L (98-107); Glucose 91 mg/dL (74-99); Non-African American GFR(CKD) 81 (>60 ml/min/1.73 sqM); Potassium 3.1 mmol/L (3.5-5.1); Sodium 146 mmol/L (137-145); Total Bilirubin 1.2 mg/dL (0.2-1.3); Total Protein 5.7 g/dL (6.3-8.2)
--- NOTE | 2024-01-05 06:01 | ED ---
Fall HPI - General Chief Complaint: Fall Stated Complaint: Fall Time Seen by Provider: 01/05/24 03:44 Source: EMS Mode of arrival: EMS - History of Present Illness Initial Comments: This patient is an 88-year-old woman sent from [facility] to have evaluation. Patient reported to have ground-level fall. When I see the patient there appears to be hip pain. She denies other pain. MD Complaint: fall -: hour(s) Fall From: wheelchair Fall Witnessed: no Place Fall Occurred: senior care/SNF Loss of Consciousness: none Prolonged Down Time?: no - Related Data Previous Rx's Medication Instructions Recorded HYDROcodone/APAP 5-325MG [[place] 1 - 2 tab PO Q6HR PRN #32 tab 11/18/23 5-325] Acetaminophen Tab [Tylenol] 650 mg PO Q6HR PRN tab 11/20/23 Aspirin 81 mg PO BID #60 tab 11/20/23 Ciprofloxacin Ophth Soln [Ciloxan 1 drops RIGHT EYE Q4HR 2 Days ml 11/20/23 0.3% Ophth Soln] Cyanocobalamin (Vitamin B-12) 1,000 mcg PO DAILY #30 tab 11/20/23 [Vitamin B-12] Famotidine [Pepcid] 20 mg PO DAILY #30 tablet 11/20/23 Folic Acid 1 mg PO DAILY #30 tablet 11/20/23 Heparin Sodium,Porcine (1 ml) 5,000 unit SQ Q12HR each 11/20/23 [Heparin Sodium] Levothyroxine Sodium [Synthroid] 50 mcg PO SuFrSa@0700 tab 11/20/23 Levothyroxine Sodium [Synthroid] 100 mcg PO MoTuWeTh@0700 tab 11/20/23 Sennosides-Docusate Sodium 2 each PO HS tab 11/20/23 [Senokot-S] Allergies Allergy/AdvReac Type Severity Reaction Status Date / Time No Known Allergies Allergy Verified 01/12/24 03:19 Review of Systems ROS Statement: Those systems with pertinent positive or pertinent negative responses have been documented in the HPI. ROS Other: All systems not noted in ROS Statement are negative. Constitutional: Denies: fever Respiratory: Denies: cough, dyspnea Cardiovascular: Denies: chest pain Gastrointestinal: Denies: abdominal pain Neurological: Denies: headache Past Medical History Past Medical History: Unable to Obtain Additional Past Medical History / Comment(s): Diverticulitis History of Any Multi-Drug Resistant Organisms: Unobtainable Past Surgical History: Unable to Obtain Past Anesthesia/Blood Transfusion Reactions: No Reported Reaction Past Psychological History: Anxiety Smoking Status: Unknown if ever smoked Past Alcohol Use History: Unable to Obtain Past Drug Use History: Unable to Obtain General Exam General appearance: alert, in no apparent distress Head exam: Present: atraumatic, normocephalic Eye exam: Present: normal appearance. Absent: scleral icterus, conjunctival injection, periorbital tenderness Neck exam: Present: normal inspection, full ROM. Absent: tenderness Respiratory exam: Present: normal lung sounds bilaterally. Absent: respiratory distress, wheezes, rales, rhonchi, stridor, chest wall tenderness Cardiovascular Exam: Present: normal rhythm, bradycardia (56 at my exam), normal heart sounds. Absent: systolic murmur, diastolic murmur, rubs, gallop GI/Abdominal exam: Present: soft. Absent: distended, tenderness, guarding, rebound, rigid, mass Extremities exam: Present: normal inspection, tenderness (At lateral aspect of hip), normal capillary refill. Absent: pedal edema, calf tenderness Back exam: Present: normal inspection. Absent: CVA tenderness (R), CVA tenderness (L) Neurological exam: Present: alert Skin exam: Present: warm, dry, intact, normal color. Absent: rash Course Vital Signs 01/05/24 01/05/24 03:42 06:11 Temperature 97.5 F L Pulse Rate 50 L 85 Respiratory 19 18 Rate Blood Pressure 159/70 126/100 O2 Sat by Pulse 91 L 91 L Oximetry Medical Decision Making - Medical Decision Making The patient had hip and pelvis x-ray that I interpreted as negative for acute fracture Was pt. sent in by a medical professional or institution (, PA, CIRCUS SUPERVISOR, urgent care, hospital, or senior care...) When possible be specific @ -Patient sent by senior care to have evaluation after fall Did you speak to anyone other than the patient for history (EMS, parent, family, police, friend...)? What history was obtained from this source @ -[No] Did you review nursing and triage notes (agree or disagree)? Why? @ -[I reviewed and agree with nursing and triage notes] Were old charts reviewed (outside hosp., previous admission, EMS record, old EKG, old radiological studies, urgent care reports/EKG's, senior care records)? Report findings @ -[No old charts were reviewed] Differential Diagnosis (chest pain, altered mental status, abdominal pain women, abdominal pain men, vaginal bleeding, weakness, fever, dyspnea, syncope, headache, dizziness, GI bleed, back pain, seizure, CVA, palpatations, mental health, musculoskeletal)? @ -Differential Musculoskeletal Muscular strain, contusion, ligament sprain, fracture, arthritis, septic arthritis, bursitis, cellulitis, muscle spasm, nerve compression, DVT, arterial occlusion, herpes zoster, electrolyte abnormality, tumor.... This is not meant to be in all inclusive list EKG interpreted by me (3pts min.). @ -[As above] X-rays interpreted by me (1pt min.). @ -Interpreted as above CT interpreted by me (1pt min.). @ -[None done] U/S interpreted by me (1pt. min.). @ -[None done] What testing was considered but not performed or refused? (CT, X-rays, U/S, labs)? Why? @ -[None] What meds were considered but not given or refused? Why? @ -[None] Did you discuss the management of the patient with other professionals (professionals i.e. , PA, CIRCUS SUPERVISOR, lab, RT, psych nurse, manager social work, slagger, teacher, strike warfare/missile systems officer, rifle case repairer)? Give summary @ -[No] Was smoking cessation discussed for >3mins.? @ -[No] Was critical care preformed (if so, how long)? @ -[No] Were there social determinants of health that impacted care today? How? (Homelessness, low income, unemployed, alcoholism, drug addiction, transportation, low edu. Level, literacy, decrease access to med. care, correction, rehab)? @ -[No] Was there de-escalation of care discussed even if they declined (Discuss DNR or withdrawal of care, Hospice)? DNR status @ -[No] What co-morbidities impacted this encounter? (DM, HTN, Smoking, COPD, CAD, Cancer, CVA, ARF, Chemo, Hep., AIDS, mental health diagnosis, sleep apnea, morbid obesity)? @ -[None] Was patient admitted / discharged? Hospital course, mention meds given and route, prescriptions, significant lab abnormalities, going to OR and other pertinent info. @ -[hospital course] Undiagnosed new problem with uncertain prognosis? @ -[No] Drug Therapy requiring intensive monitoring for toxicity (Heparin, Nitro, Insulin, Cardizem)? @ -[No] Were any procedures done? @ -[No] Diagnosis/symptom? @ -[Acute fall Acute, or Chronic, or Acute on Chronic? @ -[Acute Uncomplicated (without systemic symptoms) or Complicated (systemic symptoms)? @ -[Uncomplicated Side effects of treatment? @ -[No] Exacerbation, Progression, or Severe Exacerbation? @ -[No] Poses a threat to life or bodily function? How? (Chest pain, [place], [place], pneumonia, PE, COPD, DKA, ARF, appy, cholecystitis, CVA, Diverticulitis, Homicidal, Suicidal, threat to staff... and all critical care pts) @ -[No] - Lab Data Result diagrams: 01/05/24 04:12 01/05/24 04:12 Lab Results 01/05/24 01/05/24 Range/Units 04:12 04:12 WBC 6.7 (3.8-10.6) k/uL RBC 3.53 L (3.80-5.40) m/uL Hgb 10.5 L (11.4-16.0) gm/dL Hct 36.1 (34.0-46.0) % MCV 102.4 H (80.0-100.0) fL MCH 29.9 (25.0-35.0) pg MCHC 29.2 L (31.0-37.0) g/dL RDW 16.5 H (11.5-15.5) % Plt Count 334 (150-450) k/uL MPV 8.5 Neutrophils % 67 % Lymphocytes % 22 % Monocytes % 7 % Eosinophils % 1 % Basophils % 1 % Neutrophils # 4.5 (1.3-7.7) k/uL Lymphocytes # 1.5 (1.0-4.8) k/uL Monocytes # 0.5 (0-1.0) k/uL Eosinophils # 0.1 (0-0.7) k/uL Basophils # 0.0 (0-0.2) k/uL Hypochromasia Marked Anisocytosis Slight Macrocytosis Moderate Sodium 146 H (137-145) mmol/L Potassium 3.1 L (3.5-5.1) mmol/L Chloride 108 H (98-107) mmol/L Carbon Dioxide 32 H (22-30) mmol/L Anion Gap 6 mmol/L BUN 25 H (7-17) mg/dL Creatinine 0.64 (0.52-1.04) mg/dL Est GFR (CKD-EPI)AfAm >90 (>60 ml/min/1.73 sqM) Est GFR (CKD-EPI)NonAf 81 (>60 ml/min/1.73 sqM) Glucose 91 (74-99) mg/dL Calcium 8.6 (8.4-10.2) mg/dL Total Bilirubin 1.2 (0.2-1.3) mg/dL AST 25 (14-36) U/L ALT 14 (4-34) U/L Alkaline Phosphatase 96 (38-126) U/L Total Protein 5.7 L (6.3-8.2) g/dL Albumin 2.7 L (3.5-5.0) g/dL Disposition Clinical Impression: Fall Disposition: HOME SELF-CARE Condition: Fair Instructions (If sedation given, give patient instructions): Fall Prevention for Older Adults (ED) Is patient prescribed a controlled substance at d/c from ED?: No Referrals: None,Stated [Primary Care Provider] - 1-2 days
[2024-01-05 06:22] VITALS: BP 126/100; PULSE 85; RESP 18
--- NOTE | 2024-01-05 07:05 | XR ---
EXAM: XR Pelvis, 1 or 2 Views CLINICAL HISTORY: ITS.REASON XR Reason: fall TECHNIQUE: Frontal view of the pelvis. COMPARISON: No relevant prior studies available. 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 No fractures or dislocations. Soft tissues: Unremarkable. IMPRESSION: No acute bony pelvic injury.
== END 2024-01-05 06:37 | disposition home or self-care (01) ==
LOC: EC 03:39
DX: Z04.3 Encounter for examination and observation following other accident (principal)
CPT/HCPCS: 36415; 72170; 80053; 85025; 99284

== ENCOUNTER 2024-01-12 03:10 | Emergency (ER) | payer MEDICARE ==
--- NOTE | 2024-01-12 03:35 | ED ---
Fall HPI - General Chief Complaint: Fall Stated Complaint: Fall Time Seen by Provider: 01/12/24 03:14 Source: EMS, RN notes reviewed, old records reviewed Mode of arrival: EMS Limitations: no limitations, altered mental status - History of Present Illness Initial Comments: This is a 88-year-old female to ER from a fall. Patient is from extended-care facility for fall with unknown circumstances. Patient brought in by EMS patient did apparently hit her left knee and a wheelchair head on a door but has no loss of consciousness no complaints and no obvious injury. 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 Witnessed: yes, by living facility staff Place Fall Occurred: home Loss of Consciousness: none Prolonged Down Time?: no Symptoms Prior to Fall: none Location: head, face Location - Extremities: Left: Knee Severity: mild Severity scale (1-10): 1 Context: tripped/slipped Associated Symptoms: denies - Related Data Previous Rx's Medication Instructions Recorded HYDROcodone/APAP 5-325MG [[place] 1 - 2 tab PO Q6HR PRN #32 tab 11/18/23 5-325] Acetaminophen Tab [Tylenol] 650 mg PO Q6HR PRN tab 11/20/23 Aspirin 81 mg PO BID #60 tab 11/20/23 Ciprofloxacin Ophth Soln [Ciloxan 1 drops RIGHT EYE Q4HR 2 Days ml 11/20/23 0.3% Ophth Soln] Cyanocobalamin (Vitamin B-12) 1,000 mcg PO DAILY #30 tab 11/20/23 [Vitamin B-12] Famotidine [Pepcid] 20 mg PO DAILY #30 tablet 11/20/23 Folic Acid 1 mg PO DAILY #30 tablet 11/20/23 Heparin Sodium,Porcine (1 ml) 5,000 unit SQ Q12HR each 11/20/23 [Heparin Sodium] Levothyroxine Sodium [Synthroid] 50 mcg PO SuFrSa@0700 tab 11/20/23 Levothyroxine Sodium [Synthroid] 100 mcg PO MoTuWeTh@0700 tab 11/20/23 Sennosides-Docusate Sodium 2 each PO HS tab 11/20/23 [Senokot-S] Allergies Allergy/AdvReac Type Severity Reaction Status Date / Time No Known Allergies Allergy Verified 01/12/24 03:19 Review of Systems ROS Statement: Those systems with pertinent positive or pertinent negative responses have been documented in the HPI. ROS Other: All systems not noted in ROS Statement are negative. Past Medical History Past Medical History: Unable to Obtain Additional Past Medical History / Comment(s): Diverticulitis History of Any Multi-Drug Resistant Organisms: Unobtainable Past Surgical History: Unable to Obtain Past Anesthesia/Blood Transfusion Reactions: No Reported Reaction Past Psychological History: Anxiety Smoking Status: Unknown if ever smoked Past Alcohol Use History: Unable to Obtain Past Drug Use History: Unable to Obtain General Exam General appearance: alert, in no apparent distress Head exam: Present: atraumatic, normocephalic, normal inspection Eye exam: Present: normal appearance, PERRL, EOMI. Absent: scleral icterus, conjunctival injection, periorbital swelling ENT exam: Present: normal exam, mucous membranes moist Neck exam: Present: normal inspection. Absent: tenderness, meningismus, lymphadenopathy Respiratory exam: Present: normal lung sounds bilaterally. Absent: respiratory distress, wheezes, rales, rhonchi, stridor Cardiovascular Exam: Present: regular rate, normal rhythm, normal heart sounds. Absent: systolic murmur, diastolic murmur, rubs, gallop, clicks GI/Abdominal exam: Present: soft, normal bowel sounds. Absent: distended, tend erness, guarding, rebound, rigid Extremities exam: Present: normal inspection, full ROM, normal capillary refill. Absent: tenderness, pedal edema, joint swelling, calf tenderness Back exam: Present: normal inspection Neurological exam: Present: alert, oriented X3, CN II-XII intact Psychiatric exam: Present: normal affect, normal mood Skin exam: Present: warm, dry, intact, normal color. Absent: rash Course Vital Signs 01/12/24 03:12 Temperature 97.9 F Pulse Rate 66 Respiratory 18 Rate Blood Pressure 131/67 O2 Sat by Pulse 94 L Oximetry - Reevaluation(s) Reevaluation #1: 01/12/24 03:34 Medical records reviewed Reevaluation #2: 01/12/24 04:16 Patient is refusing any testing Reevaluation #3: 01/12/24 04:16 Patient informed of results and questions answered Reevaluation #4: Was pt. sent in by a medical professional or institution (DAVID Pineda, COAGULATION OPERATOR, urgent care, hospital, or care home...) When possible be specific @ -no Did you speak to anyone other than the patient for history (EMS, parent, family, police, friend...)? What history was obtained from this source @ -no Did you review nursing and triage notes (agree or disagree)? Why? @ -agree Are old charts reviewed (outside hosp., previous admission, EMS record, old EKG, old radiological studies, urgent care reports/EKG's, care home records)? Report findings @ -yes Differential Diagnosis (chest pain, altered mental status, abdominal pain women, abdominal pain men, vaginal bleeding, weakness, fever, dyspnea, syncope, headache, dizziness, GI bleed, back pain, seizure, CVA, palpatations, mental health, musculoskeletal)? @ -prior EKG interpreted by me (3pts min.). @ -no X-rays interpreted by me (1pt min.). @ -no CT interpreted by me (1pt min.). @ -no U/S interpreted by me (1pt. min.). @ -no What testing was considered but not performed or refused? (CT, X-rays, U/S, labs)? Why? @ -none What meds were considered but not given or refused? Why? @ -none Did you discuss the management of the patient with other professionals (professionals i.e. DAVID Pineda, COAGULATION OPERATOR, lab, RT, psych nurse, hospice social worker, flat bed operator, teacher, foreign service officer, top case assembler)? Give summary @ -no Was smoking cessation discussed for >3mins.? @ -no Was critical care preformed (if so, how long)? @ -no Were there social determinants of health that impacted care today? How? (Homelessness, low income, unemployed, alcoholism, drug addiction, transportation, low edu. Level, literacy, decrease access to med. care, fdc, rehab)? @ -none Was there de-escalation of care discussed even if they declined (Discuss DNR or withdrawal of care, Hospice)? DNR status @ -no What co-morbidities impacted this encounter? (DM, HTN, Smoking, COPD, CAD, Cancer, CVA, ARF, Chemo, Hep., AIDS, mental health diagnosis, sleep apnea, morbid obesity)? @ -none Was patient admitted / discharged? Hospital course, mention meds given and route, prescriptions, significant lab abnormalities, going to OR and other pertinent info. @ - 88 female with fall. Patient does not want any testing here in the ER and will be transferred back to extended-care facility Discharge Undiagnosed new problem with uncertain prognosis? @ -no Drug Therapy requiring intensive monitoring for toxicity (Heparin, Nitro, Insulin, Cardizem)? @ -no Were any procedures done? @ -no Diagnosis/symptom? @ -Weakness for Acute, or Chronic, or Acute on Chronic? @ -Acute Uncomplicated (without systemic symptoms) or Complicated (systemic symptoms)? @ -Complicated Side effects of treatment? @ -no Exacerbation, Progression, or Severe Exacerbation? @ -exacerbation Poses a threat to life or bodily function? How? (Chest pain, [place], [place], pneumonia, PE, COPD, DKA, ARF, appy, cholecystitis, CVA, Diverticulitis, Homicidal, Suicidal, threat to staff... and all critical care pts) @ -yes extremes of age Medical Decision Making - Medical Decision Making 88 female with fall. Patient does not want any testing here in the ER and will be transferred back to extended-care facility Disposition Clinical Impression: Fall Disposition: HOME SELF-CARE Condition: Undetermined Instructions (If sedation given, give patient instructions): Fall Prevention for Older Adults (ED) Is patient prescribed a controlled substance at d/c from ED?: No Referrals: Jj Ricardo MD [Primary Care Provider] - 1-2 days Time of Disposition: 04:10
[2024-01-12 03:54] VITALS: BP 131/67; PULSE 66; RESP 18; TEMP 97.9
== END 2024-01-12 06:59 | disposition home or self-care (01) ==
LOC: EC 03:10
DX: M25.562 Pain in left knee (principal); W18.30XA Fall on same level, unspecified, initial encounter
CPT/HCPCS: 99284